=== PATIENT | female | born 1965 | race Caucasian/White ===

== ENCOUNTER → 2017-02-11 | Outpatient (CLI) | payer BC ==
[~2017-02-11] MED LIST: ASPEC325 PO; ATOR80TA PO; BSP5 PO; BUPR150T7 PO; CLC6 PO; CLOP1TAB54 PO; LPR25 PO; LSN25 PO; NITR0.4S UT; PANT40TA PO
--- NOTE | 2017-02-11 14:42 | DIAGNOSTIC IMAGING REPORT ---
LEFT KNEE 4 OR MORE CLINICAL HISTORY: LEFT KNEE PAIN pain COMPARISON: None. DISCUSSION: Moderate degenerative narrowing medial joint compartment. Mild degenerative changes of patellofemoral joint. Superior and inferior osteophytes projecting from the patella. No significant joint effusion. There is no evidence for soft tissue swelling. IMPRESSION: Moderate degenerative change medial joint compartment and patellofemoral joint. No significant joint effusion. Electronically signed by: Yeison Reno M.D. 02/11/2017 2:41 PM Dictated Date/Time: 02/11/2017 2:40 PM
== END | disposition home or self-care (01) ==
LOC: C.RDSM 14:27
PROVIDERS: ATTEND Family Medicine
DX: M25.562 Pain in left knee (principal)

== ENCOUNTER 2024-05-06 17:39 | Inpatient (IN) ==
--- NOTE | 2024-05-06 18:30 | Emergency Department Note ---
ED Provider Note History of Present Illness Chief Complaint: Animal Bite Stated Complaint: CAT BITE RIGHT ARM, IINFLAMED SWOLLEN Time Seen by Provider: 05/06/24 17:58 59-year-old female who presents emergency department with her for evaluation of an infected cat bite to her right wrist. The patient reports that she was bitten early Friday afternoon. With progressively worsening swelling, pain and redness, she was seen in her PCPs office on Friday and started on Augmentin antibiotics. She was instructed to come to the emergency department if the redness worsened beyond the gale on her wrist. The patient reports pain now radiating into her forearm into the elbow region. She denies any tingling or numbness of the right hand or fingers. The patient is right-hand dominant. Tetanus immunization is up-to-date. The patient rates her discomfort a 4 out of 10. The patient reports that the cat's vaccinations are up-to-date. Home Medications Medication Instructions Recorded Confirmed Type cetirizine 10 mg tablet 10 mg PO DAILY PRN allergy symptoms 05/06/19 05/06/24 History citalopram 20 mg tablet 20 mg PO QAM 05/06/19 05/06/24 History multivitamin with minerals 1 tab PO QAM 05/06/19 05/06/24 History (Multiple Vitamin-Minerals tablet) nitroglycerin 0.4 mg sublingual 0.4 mg sublingual Q5M PRN chest 05/06/19 05/06/24 History tablet pain #25 tabs metformin 500 mg tablet,extended 500 mg PO QAM #180 tabs 12/17/21 05/06/24 History release 24 hr rosuvastatin 5 mg tablet 5 mg PO .COMPLEX #45 tabs 08/18/23 05/06/24 Rx amoxicillin 875 mg-potassium 1 tab PO BID 05/06/24 05/06/24 History clavulanate 125 mg tablet aspirin 81 mg tablet,delayed 81 mg PO QAM 05/06/24 05/06/24 History release clopidogrel 75 mg tablet 75 mg PO QAM 05/06/24 05/06/24 History ezetimibe 10 mg tablet 10 mg PO QAM 05/06/24 05/06/24 History hydrochlorothiazide 25 mg tablet 25 mg PO QAM 05/06/24 05/06/24 History losartan 100 mg tablet 100 mg PO QAM 05/06/24 05/06/24 History semaglutide 1 mg/dose (4 mg/3 mL) 1 mg subcut WK 05/06/24 05/06/24 History subcutaneous pen injector (Ozempic) spironolactone 25 mg tablet 25 mg PO QAM 05/06/24 05/06/24 History Allergies Allergy/AdvReac Type Severity Reaction Status Date / Time codeine AdvReac Intermediate NAUSEA AND Unverified 05/06/24 19:00 VOMITING meperidine AdvReac Intermediate NAUSEA AND Unverified 05/06/24 19:00 VOMITING atorvastatin AdvReac Mild makes her Verified 05/06/24 20:15 sick diltiazem AdvReac Mild makes her Verified 05/06/24 20:15 sick hydromorphone [From Dilaudid] AdvReac Mild makes her Verified 05/06/24 20:15 sick lisinopril AdvReac Mild makes her Verified 05/06/24 20:15 sick Past Med/Surg History Problem List (Updated 05/06/24 @ 22:08 by Todd Salinas) Cat bite of right wrist with infection (Acute) Cutaneous abscess of right wrist (Acute) Cellulitis Tenosynovitis of wrist flexor Fatty liver Type 2 diabetes mellitus Hypertension Elevated liver transaminase level Antiplatelet or antithrombotic long-term use Status post insertion of drug-eluting stent into right coronary artery for coronary artery disease 2.25 X 18 mm Xience Viktoriya MCKAYLA Glucose intolerance DANIEL on CPAP Dyslipidemia CAD (coronary artery disease) Medical History Hyperlipidemia Sleep apnea Morbid obesity with BMI of 50.0-59.9, adult Anxiety Former smoker Inferior myocardial infarction Surgical History H/O elbow surgery History of carpal tunnel surgery Hx laparoscopic cholecystectomy Family History Father Myocardial infarction Cardiomyopathy Mother Lupus Social History Smoking Status: Never smoker Hx Alcohol Use: Yes Preferred Language: Macedonian marital status: Current Living Situation: Spouse current occupational status: employed Feels Safe at Home: Yes Physical Exam Vital Signs Vital Signs - 24 hr 05/06/24 17:53 05/06/24 21:00 Temperature 36.8 C Temperature Source Temporal Artery Scan Pulse Rate 94 H Pulse Rate [Right Finger] 74 Respiratory Rate 18 19 Respiratory Effort / Characteristics Non-Labored Respiratory Pattern Regular Blood Pressure 125/66 Blood Pressure [Left Arm] 112/68 Blood Pressure Mean 85 Blood Pressure Mean [Left Arm] 82 Pulse Oximetry 97 98 Oxygen Delivery Method Room Air Room Air Sepsis Recent Fever Within 48 Hours No Sepsis New/Unexplained Change in Mental Status N/A Sepsis Action Taken by Nursing No Action Required CONSTITUTIONAL: Healthy and well nourished. Alert and oriented X 3. Patient does not appear in any acute distress. RESPIRATORY: Clear to auscultation bilaterally with no wheezing, crackles, rhonchi or stridor. CARDIOVASCULAR: Regular rate and rhythm with no murmurs, rubs or gallops. MUSCULOSKELETAL: Examination of the right wrist shows 2 puncture wounds, both dorsal and volar, along with multiple superficial abrasions. The patient has notable edema of the wrist and distal forearm region, with erythema starting to advance onto the distal forearm region. The patient also has pain with passive flexion and extension of the fingers and wrist, radiating into the forearm and elbow region. Cap refill of the fingers is less than 2 seconds. INTEGUMENTARY: No rash or other significant dermatologic conditions noted. HEMATOLOGIC: No ecchymosis or petechiae. PSYCHIATRIC: Positive affect. NEUROLOGIC: Right hand and fingers are sensory intact. Course Course Patient history and physical exam were performed. Nurses notes were reviewed. Vital signs are reviewed. I did express concern for a deep tissue infection, and indicated that she would likely require admission for IV antibiotics, possibly I&D procedure. IV access was established, and labs were ordered and drawn. The patient was administered IV Toradol for pain. I did take photos and send them via secure [place] text to Dr. Melvin, [facility] hand surgeon, who recommended admission and MRI of the wrist, and if needed, he could perform an I&D procedure tomorrow. This was also discussed with the patient, who was in agreement. The patient was ordered Unasyn 3 g IV infusion. Review of labs shows a mildly elevated white count. Patient also has an elevated glucose, with history of diabetes. MRI with and without IV contrast of the wrist does show a small abscess, with mild tenosynovitis of the first and second extensor compartments as read by the radiologist. I did send these MRI results to Dr. Melvin. The patient will remain n.p.o. after midnight for anticipated I&D procedure. Administered Medications Discontinued Medications Gadobutrol (Gadobutrol 65ml Vial) 13 ml IV ONCE ONE Stop: 05/06/24 20:33 Last Admin: 05/06/24 20:32 Dose: 13 ml Documented By: NICOLE Ampicillin Sodium/Sulbactam Sodium (Unasyn) 3,000 mg in 100 mls @ 200 mls/hr IV NOW STA Stop: 05/06/24 18:40 Last Infusion: 05/06/24 19:31 Dose: Infused Documented By: Admin: 05/06/24 18:36 Dose: 200 mls/hr Documented By: YUNIOR Ketorolac Tromethamine (Ketorolac Tromethamine 15 Mg/Ml Vial) 15 mg IV NOW STA Stop: 05/06/24 18:21 Last Admin: 05/06/24 18:36 Dose: 15 mg Documented By: YUNIOR Medical Decision Making Medical Records Attestation: I reviewed the patient's medical records. Home Medications was personally reviewed by me Laboratory Data Attestation: I reviewed the patient's lab results. 05/06/24 18:20 05/06/24 18:20 Lab Results 05/06/24 05/06/24 Range/Units 18:20 21:34 WBC 13.46 H (4.8-10.8) K/ul RBC 4.71 (4.20-5.40) M/uL Hgb 13.6 (12.0-16.0) g/dl Hct 41.5 (37.0-47.0) % MCV 88.1 (80.0-100.0) fL MCH 28.9 (25.0-34.0) pg MCHC 32.8 (32.0-36.0) g/dL RDW Std Deviation 40.9 (36.4-46.3) fL RDW Coeff of Deshaun 12.6 (11.5-14.5) % Plt Count 326 (130-400) K/uL MPV 11.1 (9.4-12.4) fL Immature Gran % (Auto) 0.3 % Neut % (Auto) 73.7 % Lymph % (Auto) 17.2 % [place] % (Auto) 7.2 % Eos % (Auto) 1.0 % Baso % (Auto) 0.6 % Neut # (Auto) 9.92 H (1.40-6.50) K/uL Lymph # (Auto) 2.32 (1.20-3.40) K/uL [place] # (Auto) 0.97 H (0.11-0.59) K/uL Eos # (Auto) 0.13 (0.00-0.50) K/uL Baso # (Auto) 0.08 (0.00-0.20) K/uL Immature Gran # (Auto) 0.04 (0.01-0.20) K/uL Sodium 136 (136-145) mmol/L Potassium 3.5 (3.5-5.1) mmol/L Chloride 97 L (98-107) mmol/L Carbon Dioxide 29 (21-32) mmol/L Anion Gap 10 (3-11) BUN 13 (6-23) mg/dl Creatinine 0.69 (0.6-1.2) mg/dl Est Cr Clr Drug Dosing 121.4 ml/min eGFR 99.29 BUN/Creatinine Ratio 18.8 (10-20) Glucose 253 H (70-99(Fasting)) mg/dl POC Glucose 212 H (70-99) mg/dl Calcium 9.9 (8.6-10.3) mg/dl Total Bilirubin 0.8 (0.2-1.0) mg/dl AST 32 (13-39) U/L ALT 44 (7-52) U/L Alkaline Phosphatase 34 (34-104) U/L Total Protein 7.6 (6.0-8.3) gm/dl Albumin 4.6 (3.4-5.0) gm/dl Globulin 3.0 (2.5-4.0) gm/dl Albumin/Globulin Ratio 1.5 (0.9-2) Imaging Data Attestation: I personally reviewed and interpreted this imaging study as follows: My Impression: My interpretation of an MRI with and without IV contrast of the right wrist does show a volar abscess, with mild tenosynovitis of the first and second extensor compartments as discussed in the following radiologist report, which was also reviewed with concurrence. Radiologist's Impression: Wrist MRI 05/06/24 18:30 Exam(s): MRI RIGHT WRIST W/WO Contrast IV Amt: 13cc gadavist EXAM: MR Right Upper Extremity Without and With Intravenous Contrast, Wrist CLINICAL HISTORY: Reason for exam: Cat bite with infected flexor tenosynovitis. TECHNIQUE: Multiplanar magnetic resonance images of the right wrist without and with intravenous contrast. CONTRAST: Patient received 13cc gadavist of IV contrast COMPARISON: Left hand radiographs 11/25/22 FINDINGS: There is no evidence of acute fracture or dislocation. There is no bone marrow edema. There is no evidence of septic arthritis or osteomyelitis. Nonspecific intraosseous cyst within the proximal scaphoid is most likely on the basis of overlying chondral loss. There is mild osteoarthritis of the triscaphe joint and severe osteoarthritis of the first CMC joint. Carpal alignment is normal. Scapholunate and lunotriquetral ligaments are intact. Angular fibrocartilage complex is intact. Carpal tunnel appears normal. Flexor retinaculum is intact. Median nerve appears normal. Flexor tendons appear normal. There is no palmar bursitis. Ulnar nerve appears unremarkable. Extensor tendons appear intact. There is mild tenosynovitis of the first and second extensor compartments of the wrist. There is a 1.6 x 1.6 x 0.7 cm peripherally enhancing fluid collection within the subcutaneous tissues lateral to the abductor pollicis longus tendon at the level of the distal radius (series 4, image 13). There is diffuse subcutaneous edema and soft tissue swelling along the dorsal and radial aspect of the wrist. IMPRESSION: 1. Dorsal and radial cellulitis of the wrist. 2. Rim-enhancing fluid collection lateral to the abductor pollicis longus tendon at the level of the distal radius (series 4, image 13). This measures 1.6 x 1.6 x 0.7 cm and could represent a soft tissue abscess. 3. Mild tenosynovitis of the first and second extensor compartments of the wrist. Electronically signed by: Geena Baltazra M.D. 05/06/24 21:16 PM MDM Narrative See ED Course section for further details of today's visit. The patient presents with complaint of progressively worsening infection of the right wrist after being bitten by her cat approximately 15 hours ago. The patient reports that she does have 4 doses of Augmentin on board without any improvement. Examination is concerning for an infected flexor tenosynovitis, having notable pain with any attempted passive flexion of the wrist and fingers. Laboratory studies shows a mildly elevated white count. MRI of the wrist does show a small volar abscess, as well as mild tenosynovitis within the first and second extensor compartments. The case was discussed with Dr. Melvin, [facility] hand surgeon, who will be consulted for possible I&D procedure tomorrow morning. Impression Cutaneous abscess of right wrist, Cat bite of right wrist with infection Discharge Plan Visit Data Chief Complaint: Animal Bite Stated Complaint: CAT BITE RIGHT ARM, IINFLAMED SWOLLEN ED Provider: Huey Salazar ED Midlevel Provider: Todd Salinas Discharge Problem: Cutaneous abscess of right wrist, Cat bite of right wrist with infection Forms Stand Alone Forms: [email or web address] Prescriptions Prescriptions: No Action rosuvastatin 5 mg tablet 5 mg PO .COMPLEX Qty: 45 3RF Hold Instructions: Leg pain Rx Instructions: 5 mg PO every other day; MON/WED/FRI nitroglycerin 0.4 mg tablet, sublingual 0.4 mg SL Q5M PRN (Reason: chest pain) Qty: 25 citalopram 20 mg tablet 20 mg PO QAM multivitamin with minerals [Multiple Vitamin-Minerals] tablet 1 tab PO QAM cetirizine 10 mg tablet 10 mg PO DAILY PRN (Reason: allergy symptoms) metformin 500 mg tablet extended release 24 hr 500 mg PO QAM Qty: 180 amoxicillin-pot clavulanate 875-125 mg tablet 1 tab PO BID Ozempic 1 mg/dose (4 mg/3 mL) pen injector 1 mg SUBCUT WK Rx Instructions: TUESDAYS aspirin [Aspirin Low-Strength] 81 mg Tablet,Delayed Release (Dr/Ec) 81 mg PO QAM hydrochlorothiazide 25 mg tablet 25 mg PO QAM losartan 100 mg tablet 100 mg PO QAM clopidogrel 75 mg tablet 75 mg PO QAM ezetimibe 10 mg tablet 10 mg PO QAM spironolactone 25 mg tablet 25 mg PO QAM Referrals Referrals: Ambar Mendez [Primary Care Provider] - Discharge Problem: Cat bite of right wrist with infection Qualifiers: Encounter type: initial encounter Qualified Code(s): S61.551A - Open bite of right wrist, initial encounter
[2024-05-06] MEDS: AMPICILLIN/SULBACTAM SOD 3,000 MG/100 ML BAG IV STA (18:36)
[2024-05-06] MEDS: KETOROLAC TROMETHAMINE 15 MG/ML VIAL IV STA (18:36)
[2024-05-06 18:38] LABS: Basophils # (auto) 0.08 K/uL (0.00-0.20); Basophils % (auto) 0.6 %; Eosinophils # (auto) 0.13 K/uL (0.00-0.50); Hematocrit (blood only) 41.5 % (37.0-47.0); Hemoglobin 13.6 g/dl (12.0-16.0); Immature Granulocytes # (auto) 0.04 K/uL (0.01-0.20); Immature Granulocytes % (auto) 0.3 %; Lymphocytes # (auto) 2.32 K/uL (1.20-3.40); Lymphocytes % (auto) 17.2 %; Mean Corpuscular Hemoglobin 28.9 pg (25.0-34.0); Mean Corpuscular Hgb Conc 32.8 g/dL (32.0-36.0); Mean Corpuscular Volume 88.1 fL (80.0-100.0); Mean Platelet Volume 11.1 fL (9.4-12.4); Monocytes # (auto) 0.97 K/uL (0.11-0.59); Monocytes % (auto) 7.2 %; Neutrophils # (auto) 9.92 K/uL (1.40-6.50); Neutrophils % (auto) 73.7 %; Platelet Count 326 K/uL (130-400); RDW Coefficient of Variation 12.6 % (11.5-14.5); RDW Standard Deviation 40.9 fL (36.4-46.3); Red Blood Count 4.71 M/uL (4.20-5.40); White Blood Count 13.46 K/ul (4.8-10.8)
[2024-05-06 19:08] LABS: Albumin Globulin Ratio 1.5 (0.9-2); Albumin Level 4.6 gm/dl (3.4-5.0); BUN Creatinine Ratio 18.8 (10-20); Bilirubin,Total 0.8 mg/dl (0.2-1.0); Calcium 9.9 mg/dl (8.6-10.3); Creatinine Clr Calc Pharmacy 121.4 ml/min; Potassium 3.5 mmol/L (3.5-5.1); Total Protein 7.6 gm/dl (6.0-8.3)
--- NOTE | 2024-05-06 19:57 | History & Physical Report ---
Date of Service May 06, 2024 Assessment & Plan (1) Tenosynovitis of wrist flexor: Plan: Clinically concerning for this with painful and limited flexion of her fingers MRI wrist w/wo IV contrast Pre-op CXR and EKG IV Unasyn, MRSA nasal swab ordered but no history of this and injury from cat bite Elevate RUE as much as possible to reduce swelling Hold anti-hypertensives pre-operatively Prior history fo acute inferior KS in 2020 with MCKAYLA to total distal RCA occlusion however very stable since then Revised cardiac risk index 2, 10.1% 30-day risk of , KS or cardiac arrest. Medical clearance pending chest x-ray and EKG. Consult orthopedics, NPO at midnight + IV fluids incase she requires I&D tomorrow (2) Type 2 diabetes mellitus: Plan: HbA1C 9.7 in 2020, repeat with AM labs Hold Ozempic and metformin Novolog: --Goal BSG Range: Low 110 mg/dL, High 140 mg/dL --Correction Factor: 45 mg/dL/unit --Carbohydrate ratio = 15 g/unit --BSGs ACHS if eating, q6h if npo Add Lantus if serial glucose levels elevated and requiring frequent Novolog (3) Cellulitis: (4) Hypertension: Plan: Holding anti-hypertensives pre-surgery Plan Anxiety - continue citalopram Coronary artery disease - s/p KS 2011, continue aspirin, holding clopidogrel pending possible surgical intervention, not on beta-leonor, continue losartan postop, continue rosuvastatin VTE prophylaxis - low risk, encourage ambulation Diet - T2DM, NPO @ midnight Disposition - observation to med/surg Admission and Anticipated Discharge Date Admission Date: May 06, 2024 History of Present Illness Chief Complaint: Cellulitis Primary Care Provider: Ambar Mendez Ling Buenrostro is a 59 year old female who presents to the ER following a cat bite. Initial by on Friday afternoon. Progressively worsening pain, swelling and erythema. She was seen by her PCP on Friday and started on Augmentin however the redness is continued to progress and she is less able to flex her fingers therefore decided to come to the ER. Current pain severity 2 out of 10. No prior history of MRSA. No fever or chills. Allergies Allergy/AdvReac Type Severity Reaction Status Date / Time codeine AdvReac Intermediate NAUSEA AND Unverified 05/06/24 19:00 VOMITING meperidine AdvReac Intermediate NAUSEA AND Unverified 05/06/24 19:00 VOMITING atorvastatin AdvReac Mild makes her Verified 05/06/24 20:15 sick diltiazem AdvReac Mild makes her Verified 05/06/24 20:15 sick hydromorphone [From Dilaudid] AdvReac Mild makes her Verified 05/06/24 20:15 sick lisinopril AdvReac Mild makes her Verified 05/06/24 20:15 sick Home Medications Medication Instructions Recorded Confirmed Type cetirizine 10 mg tablet 10 mg PO DAILY PRN allergy symptoms 05/06/19 05/06/24 History citalopram 20 mg tablet 20 mg PO QAM 05/06/19 05/06/24 History multivitamin with minerals 1 tab PO QAM 05/06/19 05/06/24 History (Multiple Vitamin-Minerals tablet) nitroglycerin 0.4 mg sublingual 0.4 mg sublingual Q5M PRN chest 05/06/19 05/06/24 History tablet pain #25 tabs metformin 500 mg tablet,extended 500 mg PO QAM #180 tabs 12/17/21 05/06/24 History release 24 hr rosuvastatin 5 mg tablet 5 mg PO .COMPLEX #45 tabs 08/18/23 05/06/24 Rx amoxicillin 875 mg-potassium 1 tab PO BID 05/06/24 05/06/24 History clavulanate 125 mg tablet aspirin 81 mg tablet,delayed 81 mg PO QAM 05/06/24 05/06/24 History release clopidogrel 75 mg tablet 75 mg PO QAM 05/06/24 05/06/24 History ezetimibe 10 mg tablet 10 mg PO QAM 05/06/24 05/06/24 History hydrochlorothiazide 25 mg tablet 25 mg PO QAM 05/06/24 05/06/24 History losartan 100 mg tablet 100 mg PO QAM 05/06/24 05/06/24 History semaglutide 1 mg/dose (4 mg/3 mL) 1 mg subcut WK 05/06/24 05/06/24 History subcutaneous pen injector (Ozempic) spironolactone 25 mg tablet 25 mg PO QAM 05/06/24 05/06/24 History Past Med/Surg History Problem List (Updated 05/06/24 @ 22:08 by Todd Salinas) Cat bite of right wrist with infection (Acute) Cutaneous abscess of right wrist (Acute) Cellulitis Tenosynovitis of wrist flexor Fatty liver Type 2 diabetes mellitus Hypertension Elevated liver transaminase level Antiplatelet or antithrombotic long-term use Status post insertion of drug-eluting stent into right coronary artery for coronary artery disease 2.25 X 18 mm Xience Viktoriya MCKAYLA Glucose intolerance DANIEL on CPAP Dyslipidemia CAD (coronary artery disease) Medical History Hyperlipidemia Sleep apnea Morbid obesity with BMI of 50.0-59.9, adult Anxiety Former smoker Inferior myocardial infarction Surgical History H/O elbow surgery History of carpal tunnel surgery Hx laparoscopic cholecystectomy Family History Father Myocardial infarction Cardiomyopathy Mother Lupus Social History Smoking Status: Former smoker Hx Alcohol Use: No Hx Substance Use: No Preferred Language: Greek 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 Beliefs That Will Affect Care: None marital status: Current Living Situation: Spouse current occupational status: employed Feels Safe at Home: Yes Safety Concerns: Feels Safe At This Time Review of Systems 2 Review of Systems: All systems reviewed & are unremarkable except as noted in HPI & below Physical Exam 2 Constitutional: well developed and + morbidly obese; + not well nourished and no acute distress Eyes: + anicteric sclerae; normal pupil size Respiratory: normal respiratory effort, lungs clear to auscultation Cardiovascular: RRR, no murmur, no edema Gastrointestinal (Abdomen): normal bowel sounds, soft, nontender, no hepatosplenomegaly Skin: Erythema and swelling over the lateral aspects of right hand from thumb to mid forearm spreading beyond marked area (reportedly from yesterday), unable to fully flex fingers, normal capillary refill Neurologic: moves all extremities and awake; not confused Psychiatric: A+Ox3, euthymic affect Results & Data Results & Data Vital Signs (Past 12 Hours) Vital Signs Temp Pulse Resp BP Pulse Ox O2 Del Method 05/06/24 17:53 36.8 C 94 H 18 125/66 97 Room Air Laboratory Results Abnormal lab results 05/06/24 Range/Units 18:20 WBC 13.46 H (4.8-10.8) K/ul Neut # (Auto) 9.92 H (1.40-6.50) K/uL [place] # (Auto) 0.97 H (0.11-0.59) K/uL Chloride 97 L (98-107) mmol/L Glucose 253 H (70-99(Fasting)) mg/dl Diagnostic Findings None Medications Administered ER medications given: Unasyn 3000 mg IV Toradol 15 mg IV Code Status & VTE Plan Code Status Full PG Care Time/CCT Total # of Minutes Spent Total Time Spent with Patient: Total time spent is greater than 50% in coordination of care (as documented) at patient's floor/unit and/or counseling patient: Coding Level of Care Code 17166 INT INP/OBS CARE MIN Diagnoses Tenosynovitis of wrist flexor M65.939 Type 2 diabetes mellitus E11.9 Cellulitis L03.90 Hypertension I10
[2024-05-06] MEDS ORDERED: DEXTROSE 50% 50 ML SYRINGE IV PRN (20:08)
[2024-05-06] MEDS ORDERED: CARBOHYDRATES FOR HYPOGLYCEMIA PO PRN (20:08)
[2024-05-06] MEDS ORDERED: GLUCOSE 40% GEL 15 GM TUBE PO PRN (20:08)
[2024-05-06] MEDS ORDERED: GLUCOSE 10 TAB/TUBE PO PRN (20:08)
[2024-05-06] MEDS ORDERED: GLUCAGON FOR INJ 1 MG VIAL SQ PRN (20:08)
[2024-05-06] MEDS: GADOBUTROL 65ML VIAL IV ONE (20:32)
--- NOTE | 2024-05-06 21:17 | Magnetic Resonance Report ---
Exam(s): MRI RIGHT WRIST W/WO Contrast IV Amt: 13cc gadavist EXAM: MR Right Upper Extremity Without and With Intravenous Contrast, Wrist CLINICAL HISTORY: Reason for exam: Cat bite with infected flexor tenosynovitis. TECHNIQUE: Multiplanar magnetic resonance images of the right wrist without and with intravenous contrast. CONTRAST: Patient received 13cc gadavist of IV contrast COMPARISON: Left hand radiographs 11/25/22 FINDINGS: There is no evidence of acute fracture or dislocation. There is no bone marrow edema. There is no evidence of septic arthritis or osteomyelitis. Nonspecific intraosseous cyst within the proximal scaphoid is most likely on the basis of overlying chondral loss. There is mild osteoarthritis of the triscaphe joint and severe osteoarthritis of the first CMC joint. Carpal alignment is normal. Scapholunate and lunotriquetral ligaments are intact. Angular fibrocartilage complex is intact. Carpal tunnel appears normal. Flexor retinaculum is intact. Median nerve appears normal. Flexor tendons appear normal. There is no palmar bursitis. Ulnar nerve appears unremarkable. Extensor tendons appear intact. There is mild tenosynovitis of the first and second extensor compartments of the wrist. There is a 1.6 x 1.6 x 0.7 cm peripherally enhancing fluid collection within the subcutaneous tissues lateral to the abductor pollicis longus tendon at the level of the distal radius (series 4, image 13). There is diffuse subcutaneous edema and soft tissue swelling along the dorsal and radial aspect of the wrist. IMPRESSION: 1. Dorsal and radial cellulitis of the wrist. 2. Rim-enhancing fluid collection lateral to the abductor pollicis longus tendon at the level of the distal radius (series 4, image 13). This measures 1.6 x 1.6 x 0.7 cm and could represent a soft tissue abscess. 3. Mild tenosynovitis of the first and second extensor compartments of the wrist. Electronically signed by: Geena Baltazar M.D. 05/06/24 21:16 PM
[2024-05-06] MEDS: INSULIN ASPART PER UNIT CHARGE SC STA (23:10)
[2024-05-06] MEDS: LACTATED RINGER'S 1,000 ML IV SCH (23:55)
[2024-05-06] MEDS: AMPICILLIN/SULBACTAM SOD 3,000 MG/100 ML BAG IV SCH (23:56)
[2024-05-06] MEDS: ACETAMINOPHEN 325 MG TAB PO PRN (23:56)
[2024-05-07] MEDS ORDERED: PHARMACY GLYCEMIC MGMT CONSULT PRN ×2 (02:13→08:15)
[2024-05-07] MEDS: KETOROLAC TROMETHAMINE 15 MG/ML VIAL IV PRN (05:31)
[2024-05-07 07:50] LABS: Basophils # (auto) 0.05 K/uL (0.00-0.20); Basophils % (auto) 0.5 %; Eosinophils # (auto) 0.14 K/uL (0.00-0.50); Eosinophils % (auto) 1.3 %; Hematocrit (blood only) 37.3 % (37.0-47.0); Hemoglobin 12.3 g/dl (12.0-16.0); Immature Granulocytes # (auto) 0.03 K/uL (0.01-0.20); Immature Granulocytes % (auto) 0.3 %; Lymphocytes # (auto) 2.33 K/uL (1.20-3.40); Lymphocytes % (auto) 21.7 %; Mean Corpuscular Hemoglobin 29.2 pg (25.0-34.0); Mean Corpuscular Volume 88.6 fL (80.0-100.0); Mean Platelet Volume 10.9 fL (9.4-12.4); Monocytes # (auto) 0.92 K/uL (0.11-0.59); Monocytes % (auto) 8.6 %; Neutrophils # (auto) 7.29 K/uL (1.40-6.50); Neutrophils % (auto) 67.6 %; Platelet Count 240 K/uL (130-400); RDW Coefficient of Variation 12.8 % (11.5-14.5); RDW Standard Deviation 41.1 fL (36.4-46.3); Red Blood Count 4.21 M/uL (4.20-5.40); White Blood Count 10.76 K/ul (4.8-10.8)
[2024-05-07 08:05] LABS: BUN Creatinine Ratio 24.2 (10-20); Calcium 9.2 mg/dl (8.6-10.3); Creatinine Clr Calc Pharmacy 135.1 ml/min; Potassium 3.7 mmol/L (3.5-5.1)
--- NOTE | 2024-05-07 08:20 | XRay Report ---
XR chest 1V portable CLINICAL HISTORY: Preoperative evaluation. COMPARISON STUDY: Chest radiograph May 06, 2023. FINDINGS: Moderate cardiomegaly is noted. There is no evidence for pulmonary edema. No pneumothorax o r pleural effusion is present. There is no consolidation. Elevation/eventration of the right hemidiap hragm is again noted. IMPRESSION: No acute cardiopulmonary findings. Cardiomegaly. ACT 112: Negative or not required by law. Electronically signed by: Jose Miguel Connors M.D. 05/07/2024 8:19 AM
[2024-05-07 08:23] LABS: Estimated Average Glucose 203 mg/dl; Hemoglobin A1C 8.7 % (4.5-5.6)
[2024-05-07] MEDS: INSULIN ASPART PER UNIT CHARGE SC SCH (08:36)
[2024-05-07] MEDS: CITALOPRAM 20 MG TAB PO SCH (08:38)
[2024-05-07] MEDS: ASPIRIN 81 MG ECTAB PO SCH (08:38)
[2024-05-07] MEDS: EZETIMIBE 10 MG TAB PO SCH (08:38)
[2024-05-07] MEDS: ROSUVASTATIN CALCIUM 5 MG TAB PO SCH (08:38)
--- OUTSIDE RECORDS SUMMARY | 2024-05-07 08:44 | External Medical Summary ---
Author Name Unknown Address Unknown Organization : Laboratory Report Ordering Provider Test Date Status Vanessa Villalta 04/28/2024 11:34:00 Final Observation Date Value Abnormality Reference (Units ) Status eAG (mg/dL) 04/29/2024 07:04:00 212 (mg/dL) Final
Specimen Received d/t: 04/28/2024 23:49:00

Lab test performed by:
[email or web address]
[address]
[place] [address]
Doug Pearce MD eAG (mmol/L) 04/29/2024 07:04:00 11.7 (mmol/L ) Final
This test was performed on the Deng miller c503 platform.
Effective 07/21/23, a change in test platforms from the
[employer] to the Deng miller c503 may have shifted
HbA1c results compared to historical results.
Based on laboratory validation testing conducted at
[facility], the Deng platform relative to the Wiseman
platform had an average increase in HbA1c value of
< or = 0.3%. This difference is within accepted
variability established by the National Glycohemoglobin
Standardization Program. Note that not all individuals
will have had a shift in their results and direct
comparisons between historical and current results for
testing conducted on different platforms is not
recommended.

Specimen Received d/t: 04/28/2024 23:49:00

Lab test performed by:
[facility]
[address]
[place] [address]
Doug Pearce MD Hemoglobin A1c/Hemoglobin.total in Blood 04/29/2024 07:04:00 9.0 Above high normal <5.7 (% of total Hgb) Final For someone without known di abetes, a hemoglobin A1c
value of 6.5% or greater indicates that they may have
diabetes and this should be confirmed with a follow-up
test.

For someone with known diabetes, a value <7% indicates
that their diabetes is well controlled and a value
greater than or equal to 7% indicates suboptimal
control. A1c targets should be individualized based on
duration of diabetes, age, comorbid conditions, and
other considerations.

Currently, no consensus exists regarding use of
hemoglobin A1c for diagnosis of diabetes for children.

Specimen Received d/t: 04/28/2024 23:49:00

Lab test performed by:
[email or web address]
[address]
[place] [address]
Doug Pearce MD Performing Location
--- OUTSIDE RECORDS SUMMARY | 2024-05-07 08:44 | External Medical Summary ---
Author Name Unknown Address Unknown Organization : Laboratory Report Ordering Provider Test Date Status Vanessa Villalta 04/28/2024 11:34:00 Final Observation Date Value Abnormality Reference (Units ) Status Cholesterol.total/Cholest lashell in HDL [Mass Ratio] in Serum or Plasma 04/29/2024 07:04:00 2.9 <5.0 ((calc)) Final
Specimen Received d/t: 04/28/2024 23:49:00

Lab test performed by:
[facility]
[address]
[place] [address]
Doug Pearce MD Cholesterol in HDL [Mass/vol ume] in Serum or Plasma 04/29/2024 07:04:00 67 > OR = 50 (mg/dL) Final
Specimen Received d/t: 04/28/2024 23:49:00

Lab test performed by:
[facility]
[address]
[place] [address]
Doug Pearce MD Non HDL Chol 04/29/2024 07:04:00 125 <130 (m g/dL (calc)) Final For patients with diabetes p sunny 1 major ASCVD risk
factor, treating to a non-HDL-C goal of <100 mg/dL
(LDL-C of <70 mg/dL) is considered a therapeutic
option.

Specimen Received d/t: 04/28/2024 23:49:00

Lab test performed by:
[facility]
[address]
[place] [address]
Doug Pearce MD LDL Chol 04/29/2024 07:04:00 100 Above high normal (m g/dL (calc)) Final Reference range: <100
<b r/>Desirable range <100 mg/dL for primary prevention;
<70 mg/dL for patients with CHD or diabetic patients
with > or = 2 CHD risk factors.

LDL-C is now calculated using the Andre- Martin
calculation, which is a validated novel method providing
better accuracy than the Friedewald equation in the
estimation of LDL-C.
Andre BRANTLEY et al. TOREY. 2013;310(19): 2061- 2068
(http://education.[employer]/faq/PIE294)

Specimen Received d/t: 04/28/2024 23:49:00

Lab test performed by:
[facility], [facility]
[address]
[place] [address]
Doug Pearce MD Cholesterol [Mass/volume] in Serum or Plasma 04/29/2024 07:04:00 192 <200 (mg/dL) Final
Specimen Received d/t: 04/28/2024 23:49:00

Lab test performed by:
[facility], [facility]
[address]
[place] [address]
Doug Pearce MD Triglyceride [Mass/volume] in Serum or Plasma 04/29/2024 07:04:00 150 Above high normal <150 (mg/dL) Fin al
Specimen Received d/t: 04/28/2024 23:49:00

Lab test performed by:
[facility], [facility]
[address]
[place] [address]
Doug Pearce MD Performing Location
--- OUTSIDE RECORDS SUMMARY | 2024-05-07 08:44 | External Medical Summary ---
Author Name Unknown Address Unknown Organization : Laboratory Report Ordering Provider Test Date Status Vanessa Villalta 04/28/2024 11:34:00 Final Observation Date Value Abnormality Reference (Units ) Status eGFR 04/29/2024 07:04:00 100 > OR = 60 (mL/min/1.73m2) Final
Specimen Received d/t: 04/28/2024 23:49:00

Lab test performed by:
[facility], [facility]
[address]
[place] [address]
Doug Pearce MD Carbon dioxide, total [Moles /volume] in Serum or Plasma 04/29/2024 07:04:00 31 20-32 (mmol/L) Fin al
Specimen Received d/t: 04/28/2024 23:49:00

Lab test performed by:
[facility], [facility]
[address]
[place] [address]
Doug Pearce MD Albumin/Globulin [Mass Ratio ] in Serum or Plasma 04/29/2024 07:04:00 1.7 1.0-2.5 ((calc)) F inal
Specimen Received d/t: 04/28/2024 23:49:00

Lab test performed by:
[facility], [facility]
[address]
[place] [address]
Doug Pearce MD Glucose [Mass/volume] in Serum or Plasma 04/29/2024 07:04:00 195 Above high normal 65-99 (mg/dL) Final
Fasting reference inte rval

For someone without known diabetes, a glucose
value >125 mg/dL indicates that they may have
diabetes and this should be confirmed with a
follow-up test.

Specimen Received d/t: 04/28/2024 23:49:00

Lab test performed by:
[facility], [facility]
[address]
[place] [address]
Doug Pearce MD Sodium [Moles/volume] in Ser um or Plasma 04/29/2024 07:04:00 138 135-146 (mmol/L) Jennifer l
Specimen Received d/t: 04/28/2024 23:49:00

Lab test performed by:
[facility], [facility]
[address]
[place] [address]
Doug Pearce MD Protein [Mass/volume] in Ser um or Plasma 04/29/2024 07:04:00 6.8 6.1-8.1 (g/dL) Final
Specimen Received d/t: 04/28/2024 23:49:00

Lab test performed by:
[facility], [facility]
[address]
[place] [address]
Doug Pearce MD Alkaline phosphatase [Enzyma tic activity/volume] in Serum or Plasma 04/29/2024 07:04:00 40 37-153 (U/L) Final
Specimen Received d/t: 04/28/2024 23:49:00

Lab test performed by:
[facility], [facility]
[address]
[place] [address]
Doug Pearce MD Creatinine [Mass/volume] in Serum or Plasma 04/29/2024 07:04:00 0.68 0.50-1.05 (mg/dL) Fin al
Specimen Received d/t: 04/28/2024 23:49:00

Lab test performed by:
[facility], [facility]
[address]
[place] [address]
Doug Pearce MD Chloride [Moles/volume] in S nupur or Plasma 04/29/2024 07:04:00 98 98-110 (mmol/L) Final
Specimen Received d/t: 04/28/2024 23:49:00

Lab test performed by:
[facility], [facility]
[address]
[place] [address]
Doug Pearce MD Gl[facility] 04/29/2024 07:04:00 2.5 1.9-3 .7 (g/dL (calc)) Final
Specimen Received d/t: 04/28/2024 23:49:00

Lab test performed by:
[facility], [facility]
[address]
[place] [address]
Doug Pearce MD Alanine aminotransferase [Enzymatic activity/volume] in Serum or Plasma 04/29/2024 07:04:00 50 Above high normal 6-29 (U/L) Final
Specimen Received d/t: 04/28/2024 23:49:00

Lab test performed by:
[facility], [facility]
[address]
[place] [address]
Doug Pearce MD Urea nitrogen/Creatinine [Ma ss Ratio] in Serum or Plasma 04/29/2024 07:04:00 SEE NOTE: 6-22 ((c alc)) Final Not Reported: BUN and Creati nine are within
reference range.

Specimen Received d/t: 04/28/2024 23:49:00

Lab test performed by:
[facility], [facility]
[address]
[place] [address]
Doug Pearce MD Ca-[facility] 04/29/2024 07:04:00 9.9 8.6-10.4 ( mg/dL) Final
Specimen Received d/t: 04/28/2024 23:49:00

Lab test performed by:
[facility], [facility]
[address]
[place] [address]
Doug Pearce MD Bilirubin.total [Mass/volume ] in Serum or Plasma 04/29/2024 07:04:00 0.6 0.2-1.2 (mg/dL) Fi nal
Specimen Received d/t: 04/28/2024 23:49:00

Lab test performed by:
[facility], [facility]
[address]
[place] [address]
Doug Pearce MD Urea nitrogen [Mass/volume] in Serum or Plasma 04/29/2024 07:04:00 12 7-25 (mg/dL) Final
Specimen Received d/t: 04/28/2024 23:49:00

Lab test performed by:
[facility], [facility]
[address]
[place] [address]
Doug Pearce MD Potassium [Moles/volume] in Serum or Plasma 04/29/2024 07:04:00 4.0 3.5-5.3 (mmol/L) Jennifer l
Specimen Received d/t: 04/28/2024 23:49:00

Lab test performed by:
[facility], [facility]
[address]
[place] [address]
Doug Pearce MD Albumin [Mass/volume] in Ser um or Plasma 04/29/2024 07:04:00 4.3 3.6-5.1 (g/dL) Final
Specimen Received d/t: 04/28/2024 23:49:00

Lab test performed by:
[facility], [facility]
[address]
[place] [address]
Doug Pearce MD Aspartate aminotransferase [Enzymatic activity/volume] in Serum or Plasma 04/29/2024 07:04:00 46 Above high normal 10-35 (U/L ) Final
Specimen Received d/t: 04/28/2024 23:49:00

Lab test performed by:
[facility], [facility]
[address]
[place] [address]
Doug Pearce MD Performing Location
--- NOTE | 2024-05-07 09:38 | Orthopedic Consultation ---
Date of Consultation May 07, 2024 Assessment & Plan (1) Cat bite of right wrist with infection: (2) Cellulitis: (3) Cutaneous abscess of right wrist: (4) Type 2 diabetes mellitus: (5) DANIEL on CPAP: (6) Dyslipidemia: (7) CAD (coronary artery disease): Plan This is a pleasant 59-year-old female who presents to [facility] [address] for evaluation of a cat bite to her right wrist. She has failed oral antibiotics and has been started on IV antibiotics. I had a long discussion with the patient regarding this injury. We discussed in great detail the pathoanatomy, pathophysiology, and treatment options. I discussed with her that in general cat bites are more concerning than other animal bites due to the piercing nature of the cat's teeth. I explained that it is not uncommon for cat bites to fail oral antibiotics and require IV antibiotics. I did examine the patient's wrist as well as her MRI. On physical exam it is difficult to feel the small fluid collection that is appreciated on MRI, and nothing was able to be expressed. The patient demonstrated some discomfort at this area, but certainly was not severe. she has no concerning findings for flexor tenosynovitis. She notes that she has already started to get exceedingly better on the antibiotic treatment that she is currently receiving. I spoke to the patient with regards to our treatment options #1 being continued cautious observation with a low threshold to proceed to the operating room for irrigation and debridement or, #2 being to proceed with irrigation debridement today. Both options are not without risk. There is certainly a risk of requiring multiple debridements if we proceed to the OR, additionally, due to her cardiac history, there are anesthesia risk with proceeding to the OR. Should we continue to cautiously observe, there is a risk of the infection worsening. After understanding the risks associated with both treatment options, the patient has elected to continue with cautious observation. We will allow her to eat today and make her n.p.o. at midnight tonight in case she does need to proceed to the OR tomorrow. I have ordered an ESR/CRP to be drawn today and we will repeat these labs tomorrow morning. I have also ordered an x-ray of the right wrist to determine if there is a radiopaque foreign body. Medical management per primary team Thank you for allowing me to participate in the care of this patient. I will continue to follow along History of Present Illness Reason for Consultation: Right hand cat bite Attending Physician: Ilir Cohen MD History of Present Illness This is a 59-year-old female who notes that last week she was trying to break up a fight between 2 cats when she sustained a bite to her right hand and wrist. She notes that she washed the area at first, however when it did not improve over the next 2 days emergency department care provider who prescribed her Augmentin. She notes worsening of the pain, redness and she began feeling febrile so she finds the Emergency Department for evaluation. In the Emergency Department, she was switched to IV antibiotics (Unasyn). She notes atraumatic improvement from yesterday after only having IV antibiotics overnight. She denies any fevers at current. She denies any meds with her chills. She denies any additional concerning areas. Allergies Allergy/AdvReac Type Severity Reaction Status Date / Time codeine AdvReac Intermediate NAUSEA AND Unverified 05/06/24 19:00 VOMITING meperidine AdvReac Intermediate NAUSEA AND Unverified 05/06/24 19:00 VOMITING atorvastatin AdvReac Mild makes her Verified 05/06/24 20:15 sick diltiazem AdvReac Mild makes her Verified 05/06/24 20:15 sick hydromorphone [From Dilaudid] AdvReac Mild makes her Verified 05/06/24 20:15 sick lisinopril AdvReac Mild makes her Verified 05/06/24 20:15 sick Home Medications Medication Instructions Recorded Confirmed Type cetirizine 10 mg tablet 10 mg PO DAILY PRN allergy symptoms 05/06/19 05/06/24 History citalopram 20 mg tablet 20 mg PO QAM 05/06/19 05/06/24 History multivitamin with minerals 1 tab PO QAM 05/06/19 05/06/24 History (Multiple Vitamin-Minerals tablet) nitroglycerin 0.4 mg sublingual 0.4 mg sublingual Q5M PRN chest 05/06/19 05/06/24 History tablet pain #25 tabs metformin 500 mg tablet,extended 500 mg PO QAM #180 tabs 12/17/21 05/06/24 History release 24 hr rosuvastatin 5 mg tablet 5 mg PO .COMPLEX #45 tabs 08/18/23 05/06/24 Rx amoxicillin 875 mg-potassium 1 tab PO BID 05/06/24 05/06/24 History clavulanate 125 mg tablet aspirin 81 mg tablet,delayed 81 mg PO QAM 05/06/24 05/06/24 History release clopidogrel 75 mg tablet 75 mg PO QAM 05/06/24 05/06/24 History ezetimibe 10 mg tablet 10 mg PO QAM 05/06/24 05/06/24 History hydrochlorothiazide 25 mg tablet 25 mg PO QAM 05/06/24 05/06/24 History losartan 100 mg tablet 100 mg PO QAM 05/06/24 05/06/24 History semaglutide 1 mg/dose (4 mg/3 mL) 1 mg subcut WK 05/06/24 05/06/24 History subcutaneous pen injector (Ozempic) spironolactone 25 mg tablet 25 mg PO QAM 05/06/24 05/06/24 History Patient History Medical History Hyperlipidemia Sleep apnea Morbid obesity with BMI of 50.0-59.9, adult Anxiety Former smoker Inferior myocardial infarction Surgical History H/O elbow surgery History of carpal tunnel surgery Hx laparoscopic cholecystectomy Family History Father Myocardial infarction Cardiomyopathy Mother Lupus Social History Smoking Status: Former smoker Hx Alcohol Use: No Hx Substance Use: No Preferred Language: Portuguese Financial Aid Coordinator Required: No Beliefs That Will Affect Care: None marital status: Current Living Situation: Spouse current occupational status: employed Feels Safe at Home: Yes Safety Concerns: Feels Safe At This Time Review of Systems Review of Systems: Negative as otherwise noted in HPI Physical Exam Physical Exam: Constitutionally, the patient appears well. She is resting comfortably in bed and very polite and friendly. On physical exam of the patient's right upper extremity, she has a series of punctate scabs representing the sites of cat bite. Most concerning on exam are two bites:#1 at the level of the radial styloid on the radial aspect of the forearm, and #2 on the dorsal and at the level of the carpus. No palpable fluid collection appreciated at this time, however mild pain when palpating over these bites. The there is more pain over the site at the radial styloid than on the dorsum. The patient demonstrates active flexion and extension of all digits without significant pain. She has nontender to palpation over the flexor tendons. She does not demonstrate fusiform swelling of her digits. There is no pain with passive extension of her digits. Results & Data Vital Signs (Past 12 Hours) Vital Signs Temp Pulse Resp BP Pulse Ox O2 Del Method 05/07/24 07:58 36.4 C L 73 20 172/70 H 97 Room Air 05/06/24 23:16 36.6 C 78 16 164/78 H 99 Room Air Laboratory Results WBC on presentation: 13.46 WBC this mornin.76 No values for ESR/CRP Diagnostic Findings MRI of the right wrist was personally interpreted and reviewed. This demonstrates diffuse cellulitis through the subcutaneous tissues of the right wrist with small fluid collection just superficial to the EPL tendon at the level of the radial styloid. (1) Cat bite of right wrist with infection Encounter type: initial encounter Qualified Code(s): S61.551A - Open bite of right wrist, initial encounter; L08.9 - Local infection of the skin and subcutaneous tissue, unspecified; W55.01XA - Bitten by cat, initial encounter
[2024-05-07 10:23] LABS: C Reactive Protein 1.84 mg/dl (0-0.5)
--- NOTE | 2024-05-07 10:39 | Electrocardiogram Report ---
Test Reason : Blood Pressure : */* mmHG Vent. Rate : 75 BPM Atrial Rate : 75 BPM P-R Int : 212 ms QRS Dur : 106 ms QT Int : 398 ms P-R-T Axes : 52 53 23 degrees QTcB Int : 444 ms Sinus rhythm with 1st degree A-V block with occasional Premature ventricular complexes Incomplete right bundle branch block Possible Inferior infarct (cited on or before 08-Nov-2011) Poor R wave progression, consider anterior VA vs. lead placement vs. LVH Abnormal ECG When compared with ECG of 06-May-2023 11:11, No significant change was found Confirmed by Juan Espinal ([id number]) on 05/07/2024 10:39:27 AM Referred By: REFERRED SELF Confirmed By: Juan Espinal
--- NOTE | 2024-05-07 12:16 | Hospitalist Progress Note ---
Date of Service May 07, 2024 Assessment & Plan (1) Tenosynovitis of wrist flexor: (2) Abscess of forearm, right: (3) CAD (coronary artery disease): (4) Chronic diastolic CHF (congestive heart failure): (5) Hypertension: (6) Type 2 diabetes mellitus: (7) DANIEL on CPAP: (8) Morbid obesity with BMI of 50.0-59.9, adult: Plan 59-year-old female with past medical history of coronary disease status post stent in the remote past on dual antiplatelet therapy, morbid obesity, chronic diastolic congestive heart failure, type 2 diabetes mellitus, DANIEL on CPAP presents to the emergency room after she sustained a bike from her cat to her right hand and wrist and failed oral Augmentin as outpatient with worsening pain, redness and edema. #Right wrist/forearm cellulitis/abscess secondary to cat bite Patient was seen by orthopedic surgeon Dr. Refugio Obrien and she will be seen by hand surgeon Dr. Juna Melvin this afternoon I spoke with hand surgery: They would like cardiac clearance given patient's extensive cardiac history Continue IV Unasyn (day 1) Cardiology consult for cardiac clearance/optimization for surgery #Coronary disease status post MCKAYLA to RCA in 2011 #Essential hypertension #Chronic diastolic congestive heart failure with preserved ejection fraction Outpatient auto travel counselor Dr. Stephane Donald Hold spironolactone and hydrochlorothiazide in anticipation for surgery since patient was on IV fluids Continue losartan 100 mg daily Continue aspirin and hold Plavix Continue statin I/O monitoring Daily weights #Type 2 diabetes mellitus #Morbid obesity #Fatty liver A1c is 8.7 Lifestyle counseling regarding diet, exercise and weight loss provided Pharmacy consult for glycemic control She has seen Dr. Sen in the past for fatty liver Monitor LFTs intermittently #DANIEL Continue CPAP at bedtime #Anxiety/depression Continue citalopram 20 mg daily CODE STATUS: Full code DVT prophylaxis: Hold chemical prophylaxis for surgery, bilateral SCDs Care plan discussed with patient, nursing staff Admission and Anticipated Discharge Date Admission Date: May 06, 2024 Subjective Patient seen and examined H&P reviewed Labs reviewed Radiology reviewed Patient reports improvement in her right hand erythema, pain and range of motion She denies any fever, chills, chest pain, shortness of breath, nausea, vomiting, diarrhea, abdominal pain, dizziness, lightheadedness, bright red blood per rectum She is getting up and going to the bathroom Social history: Lives with her spouse. Denies tobacco use. Occasional alcohol use Review of Systems Review of Systems: As per HPI Physical Exam Physical Exam: General: No acute distress Psych: Awake and alert HEENT: Anicteric sclera, moist oral mucosa CVS: Regular rate and rhythm Lungs: Bilateral air entry, no wheezing noted Abdomen: Soft, nontender, no rebound, no guarding Ext: Bilateral lower extremity no edema, no calf tenderness. Right hand edema, erythema noted, patient is able to flex and extend her fingers, bite gale noted with scab on her right hand Neuro: No focal motor deficits noted Results & Data Results & Data Vital Signs (Past 12 Hours) Vital Signs Temp Pulse Resp BP Pulse Ox O2 Del Method 05/07/24 07:58 36.4 C L 73 20 172/70 H 97 Room Air Laboratory Results 05/06/24 05/06/24 05/06/24 18:20 21:33 21:34 WBC 13.46 H RBC 4.71 Hgb 13.6 Hct 41.5 MCV 88.1 MCH 28.9 MCHC 32.8 RDW Std Deviation 40.9 RDW Coeff of Deshaun 12.6 Plt Count 326 MPV 11.1 Immature Gran % (Auto) 0.3 Neut % (Auto) 73.7 Lymph % (Auto) 17.2 [place] % (Auto) 7.2 Eos % (Auto) 1.0 Baso % (Auto) 0.6 Neut # (Auto) 9.92 H Lymph # (Auto) 2.32 [place] # (Auto) 0.97 H Eos # (Auto) 0.13 Baso # (Auto) 0.08 Immature Gran # (Auto) 0.04 ESR Sodium 136 Potassium 3.5 Chloride 97 L Carbon Dioxide 29 Anion Gap 10 BUN 13 Creatinine 0.69 Est Cr Clr Drug Dosing 121.4 eGFR 99.29 BUN/Creatinine Ratio 18.8 Glucose 253 H POC Glucose 212 H Estimat Average Glucose Hemoglobin A1c Calcium 9.9 Total Bilirubin 0.8 AST 32 ALT 44 Alkaline Phosphatase 34 C-Reactive Protein Total Protein 7.6 Albumin 4.6 Globulin 3.0 Albumin/Globulin Ratio 1.5 Nasal Screen MRSA (PCR) Negative 05/06/24 05/07/24 05/07/24 23:07 07:30 07:57 WBC 10.76 RBC 4.21 Hgb 12.3 Hct 37.3 MCV 88.6 MCH 29.2 MCHC 33.0 RDW Std Deviation 41.1 RDW Coeff of Deshaun 12.8 Plt Count 240 MPV 10.9 Immature Gran % (Auto) 0.3 Neut % (Auto) 67.6 Lymph % (Auto) 21.7 [place] % (Auto) 8.6 Eos % (Auto) 1.3 Baso % (Auto) 0.5 Neut # (Auto) 7.29 H Lymph # (Auto) 2.33 [place] # (Auto) 0.92 H Eos # (Auto) 0.14 Baso # (Auto) 0.05 Immature Gran # (Auto) 0.03 ESR 31 H Sodium 137 Potassium 3.7 Chloride 99 Carbon Dioxide 29 Anion Gap 9 BUN 15 Creatinine 0.62 Est Cr Clr Drug Dosing 135.1 eGFR 101.89 BUN/Creatinine Ratio 24.2 H Glucose 180 H POC Glucose 155 H 174 H Estimat Average Glucose 203 Hemoglobin A1c 8.7 H Calcium 9.2 Total Bilirubin AST ALT Alkaline Phosphatase C-Reactive Protein 1.84 H Total Protein Albumin Globulin Albumin/Globulin Ratio Nasal Screen MRSA (PCR) 05/07/24 11:50 WBC RBC Hgb Hct MCV MCH MCHC RDW Std Deviation RDW Coeff of Deshaun Plt Count MPV Immature Gran % (Auto) Neut % (Auto) Lymph % (Auto) [place] % (Auto) Eos % (Auto) Baso % (Auto) Neut # (Auto) Lymph # (Auto) [place] # (Auto) Eos # (Auto) Baso # (Auto) Immature Gran # (Auto) ESR Sodium Potassium Chloride Carbon Dioxide Anion Gap BUN Creatinine Est Cr Clr Drug Dosing eGFR BUN/Creatinine Ratio Glucose POC Glucose 207 H Estimat Average Glucose Hemoglobin A1c Calcium Total Bilirubin AST ALT Alkaline Phosphatase C-Reactive Protein Total Protein Albumin Globulin Albumin/Globulin Ratio Nasal Screen MRSA (PCR) Diagnostic Findings Wrist MRI 05/06/24 18:30 Exam(s): MRI RIGHT WRIST W/WO Contrast IV Amt: 13cc gadavist EXAM: MR Right Upper Extremity Without and With Intravenous Contrast, Wrist CLINICAL HISTORY: Reason for exam: Cat bite with infected flexor tenosynovitis. TECHNIQUE: Multiplanar magnetic resonance images of the right wrist without and with intravenous contrast. CONTRAST: Patient received 13cc gadavist of IV contrast COMPARISON: Left hand radiographs 11/25/22 FINDINGS: There is no evidence of acute fracture or dislocation. There is no bone marrow edema. There is no evidence of septic arthritis or osteomyelitis. Nonspecific intraosseous cyst within the proximal scaphoid is most likely on the basis of overlying chondral loss. There is mild osteoarthritis of the triscaphe joint and severe osteoarthritis of the first CMC joint. Carpal alignment is normal. Scapholunate and lunotriquetral ligaments are intact. Angular fibrocartilage complex is intact. Carpal tunnel appears normal. Flexor retinaculum is intact. Median nerve appears normal. Flexor tendons appear normal. There is no palmar bursitis. Ulnar nerve appears unremarkable. Extensor tendons appear intact. There is mild tenosynovitis of the first and second extensor compartments of the wrist. There is a 1.6 x 1.6 x 0.7 cm peripherally enhancing fluid collection within the subcutaneous tissues lateral to the abductor pollicis longus tendon at the level of the distal radius (series 4, image 13). There is diffuse subcutaneous edema and soft tissue swelling along the dorsal and radial aspect of the wrist. IMPRESSION: 1. Dorsal and radial cellulitis of the wrist. 2. Rim-enhancing fluid collection lateral to the abductor pollicis longus tendon at the level of the distal radius (series 4, image 13). This measures 1.6 x 1.6 x 0.7 cm and could represent a soft tissue abscess. 3. Mild tenosynovitis of the first and second extensor compartments of the wrist. Electronically signed by: Geena Baltazar M.D. 05/06/24 21:16 PM Chest X-Ray 05/07/24 06:00 XR chest 1V portable CLINICAL HISTORY: Preoperative evaluation. COMPARISON STUDY: Chest radiograph May 06, 2023. FINDINGS: Moderate cardiomegaly is noted. There is no evidence for pulmonary edema. No pneumothorax or pleural effusion is present. There is no consolidation. Elevation/eventration of the right hemidiaphragm is again noted. IMPRESSION: No acute cardiopulmonary findings. Cardiomegaly. ACT 112: Negative or not required by law. Electronically signed by: Jose Miguel Connors M.D. 05/07/2024 8:19 AM PG Care Time/CCT Total # of Minutes Spent Total Time Spent with Patient: Total time spent is greater than 50% in coordination of care (as documented) at patient's floor/unit and/or counseling patient: Coding Level of Care Code 92896 SUB INP/OBS CARE 3/50MIN Diagnoses Tenosynovitis of wrist flexor M65.939 Abscess of forearm, right L02.413 CAD (coronary artery disease) I25.10 Chronic diastolic CHF (congestive heart failure) I50.32 Hypertension I10 Type 2 diabetes mellitus E11.9 DANIEL on CPAP G47.33; Z99.89 Morbid obesity with BMI of 50.0-59.9, adult E66.01; Z68.43
--- NOTE | 2024-05-07 14:14 | Pharmacy Report ---
Pharmacy Glycemic Short Note 2 - Date of Service May 07, 2024 - Glycemic Short BSG Results (Last 24 hours): 05/06/24 05/06/24 05/06/24 18:20 21:34 23:07 Glucose 253 H POC Glucose 212 H 155 H 05/07/24 05/07/24 05/07/24 07:30 07:57 11:50 Glucose 180 H POC Glucose 174 H 207 H OUTPATIENT ANTIDIABETIC REGIMEN: * Metformin 500mg po daily * Ozempic 1mg SQ weekly HbA1c: 8.7% on 05/07/24 ASSESSMENT: * 59 year old female admitted 05/06 for tenosynovitis of wrist flexor secondary to a cat bite. Patient is a poorly controlled type 2 diabetic as an outpatient. Pharmacy has been consulted for glycemic management while she is admitted. * Initial BSG yesterday was elevated at 253mg/dl. * Basal insulin has not yet been started as she was not on any insulin at home. * Conservative novolog dosing was started last night due to NPO status and no steroids have been given. However, patient has been refusing some doses of insulin. This bolus dosing will be continued today and will adjust further if needed. PLAN FOR INPATIENT GLYCEMIC CONTROL: * Hold outpatient diabetes medications * No Basal insulin * Bolus insulin * NovoLog per scale ACHS or Q6hrs while NPO * Goal Range: Low 110 mg/dL - High 140 mg/dL * Correction Factor: 45 mg/dL/unit * Nutritional / Prandial insulin per carb ratio of 1 unit per 15 grams CHO consumed
--- NOTE | 2024-05-07 14:35 | XRay Report ---
XR wrist RT min 3V routine CLINICAL HISTORY: cat bite COMPARISON: Right hand radiographs November 25, 2022. MRI of the right wrist May 06, 2024. FINDINGS: Alignment of the right wrist is anatomic. There are no fractures. No bony erosions are gloria ntified. There is severe joint space narrowing of the right first carpometacarpal joint. No radiopaqu e foreign bodies are identified. Wrist soft tissue swelling is noted. IMPRESSION: 1. No fractures within the right wrist. No evidence for acute osteomyelitis. Right wrist soft tissue swelling. 2. Severe osteoarthritis of the right first carpometacarpal joint. ACT 112: Negative or not required by law. Electronically signed by: Jose Miguel Connors M.D. 05/07/2024 2:34 PM
--- NOTE | 2024-05-07 16:07 | Cardiology Consultation ---
Date of Consultation May 07, 2024 Assessment & Plan (1) CAD (coronary artery disease): Plan 1. Coronary artery disease: She has remote history of myocardial infarction. Most recent evaluation in 2014 demonstrated preserved LV systolic function without regional wall motion abnormalities. While she is quite sedentary, she does not describe concerning symptoms for unstable coronary disease, high risk valvular disease, arrhythmias or heart failure. Given the low risk nature of the intended surgery do not believe she requires additional testing. She is on dual antiplatelet therapy but Plavix could certainly be held to facilitate surgery if required. Otherwise, standard precautions are recommended which would include maintaining good oxygenation, avoiding significant blood loss or anemia, avoiding severely elevated or low blood pressure and significant tachycardia. Revised cardiac risk index suggests less than 1% chance of complication. History of Present Illness Reason for Consultation: History of coronary artery disease Requesting Physician: Vicki Attending Physician: Ilir Cohen MD History of Present Illness The patient is a 59-year-old woman with a history of coronary artery disease having suffered an acute myocardial infarction in 2011. At that time she underwent percutaneous intervention to the right coronary artery. Subsequently she has done quite well. She has not had recurrent symptoms of chest discomfort or angina. Her initial presentation primarily involve back discomfort between her shoulder blades. She has not had a recurrence of this symptom. She is admittedly sedentary due to hip discomfort. She has difficulty ambulating long distances. She generally does not as send stairs. However, she is able to perform routine activities such as housework, vacuuming and shopping. She is able to push a shopping cart through a grocery store and carry groceries to her car. She did not report symptoms associated with that activity with the exception of hip discomfort. No exertional dyspnea, no exertional chest or back pain. She has very fleeting palpitations that last less than a second. No extended episodes. She did not endorse symptoms of dizziness or lightheadedness. She is being evaluated for a right hand infection. Apparently this was related to a cat bite. She has been on oral and intravenous antibiotic but may require operative intervention for resolution. Allergies Allergy/AdvReac Type Severity Reaction Status Date / Time codeine AdvReac Intermediate NAUSEA AND Unverified 05/06/24 19:00 VOMITING meperidine AdvReac Intermediate NAUSEA AND Unverified 05/06/24 19:00 VOMITING atorvastatin AdvReac Mild makes her Verified 05/06/24 20:15 sick diltiazem AdvReac Mild makes her Verified 05/06/24 20:15 sick hydromorphone [From Dilaudid] AdvReac Mild makes her Verified 05/06/24 20:15 sick lisinopril AdvReac Mild makes her Verified 05/06/24 20:15 sick Home Medications Medication Instructions Recorded Confirmed Type cetirizine 10 mg tablet 10 mg PO DAILY PRN allergy symptoms 05/06/19 05/06/24 History citalopram 20 mg tablet 20 mg PO QAM 05/06/19 05/06/24 History multivitamin with minerals 1 tab PO QAM 05/06/19 05/06/24 History (Multiple Vitamin-Minerals tablet) nitroglycerin 0.4 mg sublingual 0.4 mg sublingual Q5M PRN chest 05/06/19 05/06/24 History tablet pain #25 tabs metformin 500 mg tablet,extended 500 mg PO QAM #180 tabs 12/17/21 05/06/24 History release 24 hr rosuvastatin 5 mg tablet 5 mg PO .COMPLEX #45 tabs 08/18/23 05/06/24 Rx amoxicillin 875 mg-potassium 1 tab PO BID 05/06/24 05/06/24 History clavulanate 125 mg tablet aspirin 81 mg tablet,delayed 81 mg PO QAM 05/06/24 05/06/24 History release clopidogrel 75 mg tablet 75 mg PO QAM 05/06/24 05/06/24 History ezetimibe 10 mg tablet 10 mg PO QAM 05/06/24 05/06/24 History hydrochlorothiazide 25 mg tablet 25 mg PO QAM 05/06/24 05/06/24 History losartan 100 mg tablet 100 mg PO QAM 05/06/24 05/06/24 History semaglutide 1 mg/dose (4 mg/3 mL) 1 mg subcut WK 05/06/24 05/06/24 History subcutaneous pen injector (Ozempic) spironolactone 25 mg tablet 25 mg PO QAM 05/06/24 05/06/24 History Patient History Medical History Hyperlipidemia Sleep apnea Morbid obesity with BMI of 50.0-59.9, adult Anxiety Former smoker Inferior myocardial infarction Surgical History H/O elbow surgery History of carpal tunnel surgery Hx laparoscopic cholecystectomy Family History Father Myocardial infarction Cardiomyopathy Mother Lupus Social History Smoking Status: Former smoker Hx Alcohol Use: No Hx Substance Use: No Preferred Language: Turkmen Communication Ability: Effective Scientific Informatics Project Leader Required: No Beliefs That Will Affect Care: None marital status: Current Living Situation: Spouse current occupational status: employed Feels Safe at Home: Yes Safety Concerns: Feels Safe At This Time Assistive Devices: CPAP Review of Systems Review of Systems: Per HPI Physical Exam Physical Exam: She is alert and oriented x3. Mood affect appear normal. She answered all questions appropriately. Obese HEENT: Sclerae are anicteric. Pupils are equal and reactive to light and accommodation. Extraocular movements were intact. Neuro: Cranial nerves intact Lungs: Lungs are clear to auscultation bilaterally. There are no rales wheezes or rhonchi. She has normal respiratory effort without use of accessory muscles. There is normal pulmonary excursion. Cardiac: The rhythm was regular. S1 and S2 were normal. There are no murmurs on examination. The PMI was not markedly displaced on palpation. Abdomen: The abdomen was soft and nontender. Extremities: Left radial pulse was normal in intensity. There is no evidence cyanosis or clubbing. There was no evidence of significant peripheral edema bilaterally. Right hand demonstrates erythema along the thenar eminence and right forearm. Skin: There are no rashes noted on examination today. Results & Data Vital Signs (Past 12 Hours) Vital Signs Temp Pulse Resp BP Pulse Ox O2 Del Method 05/07/24 07:58 36.4 C L 73 20 172/70 H 97 Room Air 05/07/24 07:30 Room Air Laboratory Results Abnormal Lab Results 05/06/24 05/06/24 05/06/24 18:20 21:33 21:34 WBC 13.46 H RBC 4.71 Hgb 13.6 Hct 41.5 MCV 88.1 MCH 28.9 MCHC 32.8 RDW Std Deviation 40.9 RDW Coeff of Deshaun 12.6 Plt Count 326 MPV 11.1 Immature Gran % (Auto) 0.3 Neut % (Auto) 73.7 Lymph % (Auto) 17.2 [place] % (Auto) 7.2 Eos % (Auto) 1.0 Baso % (Auto) 0.6 Neut # (Auto) 9.92 H Lymph # (Auto) 2.32 [place] # (Auto) 0.97 H Eos # (Auto) 0.13 Baso # (Auto) 0.08 Immature Gran # (Auto) 0.04 ESR Sodium 136 Potassium 3.5 Chloride 97 L Carbon Dioxide 29 Anion Gap 10 BUN 13 Creatinine 0.69 Est Cr Clr Drug Dosing 121.4 eGFR 99.29 BUN/Creatinine Ratio 18.8 Glucose 253 H POC Glucose 212 H Estimat Average Glucose Hemoglobin A1c Calcium 9.9 Total Bilirubin 0.8 AST 32 ALT 44 Alkaline Phosphatase 34 C-Reactive Protein Total Protein 7.6 Albumin 4.6 Globulin 3.0 Albumin/Globulin Ratio 1.5 Nasal Screen MRSA (PCR) Negative 05/06/24 05/07/24 05/07/24 23:07 07:30 07:57 WBC 10.76 RBC 4.21 Hgb 12.3 Hct 37.3 MCV 88.6 MCH 29.2 MCHC 33.0 RDW Std Deviation 41.1 RDW Coeff of Deshaun 12.8 Plt Count 240 MPV 10.9 Immature Gran % (Auto) 0.3 Neut % (Auto) 67.6 Lymph % (Auto) 21.7 [place] % (Auto) 8.6 Eos % (Auto) 1.3 Baso % (Auto) 0.5 Neut # (Auto) 7.29 H Lymph # (Auto) 2.33 [place] # (Auto) 0.92 H Eos # (Auto) 0.14 Baso # (Auto) 0.05 Immature Gran # (Auto) 0.03 ESR 31 H Sodium 137 Potassium 3.7 Chloride 99 Carbon Dioxide 29 Anion Gap 9 BUN 15 Creatinine 0.62 Est Cr Clr Drug Dosing 135.1 eGFR 101.89 BUN/Creatinine Ratio 24.2 H Glucose 180 H POC Glucose 155 H 174 H Estimat Average Glucose 203 Hemoglobin A1c 8.7 H Calcium 9.2 Total Bilirubin AST ALT Alkaline Phosphatase C-Reactive Protein 1.84 H Total Protein Albumin Globulin Albumin/Globulin Ratio Nasal Screen MRSA (PCR) 05/07/24 11:50 WBC RBC Hgb Hct MCV MCH MCHC RDW Std Deviation RDW Coeff of Deshaun Plt Count MPV Immature Gran % (Auto) Neut % (Auto) Lymph % (Auto) [place] % (Auto) Eos % (Auto) Baso % (Auto) Neut # (Auto) Lymph # (Auto) [place] # (Auto) Eos # (Auto) Baso # (Auto) Immature Gran # (Auto) ESR Sodium Potassium Chloride Carbon Dioxide Anion Gap BUN Creatinine Est Cr Clr Drug Dosing eGFR BUN/Creatinine Ratio Glucose POC Glucose 207 H Estimat Average Glucose Hemoglobin A1c Calcium Total Bilirubin AST ALT Alkaline Phosphatase C-Reactive Protein Total Protein Albumin Globulin Albumin/Globulin Ratio Nasal Screen MRSA (PCR) Diagnostic Findings PCI to the right coronary artery November 2011. Admitted subsequent to intervention for presumed pericarditis. Echocardiogram 01/2015: Normal LV systolic function without regional wall motion abnormalities. Stage I diastolic dysfunction. Mild LVH. No valvular heart disease. Chest x-ray 05/07/2024: No acute cardiopulmonary findings. ECG Additional Comments: EKG demonstrated normal sinus rhythm with single PVC. Old inferior myocardial infarction PG Care Time/CCT Total # of Minutes Spent Total Time Spent with Patient: Total time spent is greater than 50% in coordination of care (as documented) at patient's floor/unit and/or counseling patient: Coding Level of Care Code 86183 IN/OBS CONSULT LVL 4,60M Diagnoses CAD (coronary artery disease) I25.10
--- NOTE | 2024-05-07 17:09 | Consultation ---
Date of Consultation May 07, 2024 Assessment & Plan (1) Abscess of forearm, right: She exhibits evidence of deep abscess in the forearm which is worsening with time. At this point she is failed conservative treatment with IV antibiotics. Will plan for: -Right wrist incision and drainage of abscess. Will plan for surgical treatment tomorrow in the morning. N.p.o. after midnight. Will hold Plavix until after surgery. Risk and benefits have been discussed including but not limited to stiffness, failure to improve, recurrent infection, tendon and nerve injury, anesthesia complications. She is agreeable and wishes to proceed. History of Present Illness Requesting Physician: Hospitalist Reason for Consultation: Hand surgery consultation Attending Physician: Ilir Cohen MD History of Present Illness This is a female who is known to me from previous trigger finger release in the remote past. She presents several days after cat bite with failure of outpatient antibiotics. She remains with increasing pain and swelling. She notes over the past afternoon increasing swelling localized to the volar wrist in the region of the puncture wound. Allergies Allergy/AdvReac Type Severity Reaction Status Date / Time codeine AdvReac Intermediate NAUSEA AND Unverified 05/06/24 19:00 VOMITING meperidine AdvReac Intermediate NAUSEA AND Unverified 05/06/24 19:00 VOMITING atorvastatin AdvReac Mild makes her Verified 05/06/24 20:15 sick diltiazem AdvReac Mild makes her Verified 05/06/24 20:15 sick hydromorphone [From Dilaudid] AdvReac Mild makes her Verified 05/06/24 20:15 sick lisinopril AdvReac Mild makes her Verified 05/06/24 20:15 sick Home Medications Medication Instructions Recorded Confirmed Type cetirizine 10 mg tablet 10 mg PO DAILY PRN allergy symptoms 05/06/19 05/06/24 History citalopram 20 mg tablet 20 mg PO QAM 05/06/19 05/06/24 History multivitamin with minerals 1 tab PO QAM 05/06/19 05/06/24 History (Multiple Vitamin-Minerals tablet) nitroglycerin 0.4 mg sublingual 0.4 mg sublingual Q5M PRN chest 05/06/19 05/06/24 History tablet pain #25 tabs metformin 500 mg tablet,extended 500 mg PO QAM #180 tabs 12/17/21 05/06/24 History release 24 hr rosuvastatin 5 mg tablet 5 mg PO .COMPLEX #45 tabs 08/18/23 05/06/24 Rx amoxicillin 875 mg-potassium 1 tab PO BID 05/06/24 05/06/24 History clavulanate 125 mg tablet aspirin 81 mg tablet,delayed 81 mg PO QAM 05/06/24 05/06/24 History release clopidogrel 75 mg tablet 75 mg PO QAM 05/06/24 05/06/24 History ezetimibe 10 mg tablet 10 mg PO QAM 05/06/24 05/06/24 History hydrochlorothiazide 25 mg tablet 25 mg PO QAM 05/06/24 05/06/24 History losartan 100 mg tablet 100 mg PO QAM 05/06/24 05/06/24 History semaglutide 1 mg/dose (4 mg/3 mL) 1 mg subcut WK 05/06/24 05/06/24 History subcutaneous pen injector (Ozempic) spironolactone 25 mg tablet 25 mg PO QAM 05/06/24 05/06/24 History Patient History Medical History Hyperlipidemia Sleep apnea Morbid obesity with BMI of 50.0-59.9, adult Anxiety Former smoker Inferior myocardial infarction Surgical History H/O elbow surgery History of carpal tunnel surgery Hx laparoscopic cholecystectomy Family History Father Myocardial infarction Cardiomyopathy Mother Lupus Social History Smoking Status: Former smoker Hx Alcohol Use: No Hx Substance Use: No Preferred Language: Ivorian Communication Ability: Effective Corporate Development Analyst Required: No Beliefs That Will Affect Care: None marital status: Current Living Situation: Spouse current occupational status: employed Feels Safe at Home: Yes Safety Concerns: Feels Safe At This Time Assistive Devices: CPAP Physical Exam Musculoskeletal: Right upper extremity exam: She has no evidence of septic joint and no evidence of septic flexor tenosynovitis with negative knaval signs. She has cellulitis which is decreasing compared to the conde. However, she has localized abscess w hich is palpable and fluctuant over the volar puncture wound. This is about the size of a large gumball Results & Data Vital Signs (Past 12 Hours) Vital Signs Temp Pulse Resp BP Pulse Ox O2 Del Method 05/07/24 16:12 36.4 C L 77 16 170/83 H 96 Room Air 05/07/24 07:58 36.4 C L 73 20 172/70 H 97 Room Air 05/07/24 07:30 Room Air
[2024-05-07] MEDS: ACETAMINOPHEN 500 MG TAB PO PRN (21:44)
[2024-05-07] MEDS: CETIRIZINE HCL 10 MG TABLET PO PRN (21:46)
[2024-05-08] MEDS: KETOROLAC TROMETHAMINE 10 MG TABLET PO STA (00:33)
[2024-05-08] MEDS ORDERED: Nursing to Pharmacy Communication SCH (05:45)
[2024-05-08] MEDS: INSULIN ASPART PER UNIT CHARGE SC SCH ×2 (06:19→17:29)
--- NOTE | 2024-05-08 07:19 | Anesthesiology Consultation ---
Date of Service May 08, 2024 Assessment & Plan Chart Review Chart Review: Acceptable Risk for Surgery and Patient NOT seen in Pre Admission Testing Consults Requested none ASA ASA4 Proposed Anesthesia Anesthesia Type: General History Surgery Operation Date: 05/08/24 09:00 Proposed Procedures p Incision and Drainage Right Hand - Juan Melvin MD Height/Weight Height: 5 ft 4 in Weight: 139.6 kg Allergies Allergy/AdvReac Type Severity Reaction Status Date / Time codeine AdvReac Intermediate NAUSEA AND Unverified 05/06/24 19:00 VOMITING meperidine AdvReac Intermediate NAUSEA AND Unverified 05/06/24 19:00 VOMITING atorvastatin AdvReac Mild makes her Verified 05/06/24 20:15 sick diltiazem AdvReac Mild makes her Verified 05/06/24 20:15 sick hydromorphone [From Dilaudid] AdvReac Mild makes her Verified 05/06/24 20:15 sick lisinopril AdvReac Mild makes her Verified 05/06/24 20:15 sick Medications Home Medications Medication Instructions Recorded Confirmed Last Taken cetirizine 10 mg tablet 10 mg PO DAILY PRN allergy symptoms 05/06/19 05/06/24 Unknown citalopram 20 mg tablet 20 mg PO QAM 05/06/19 05/06/24 05/06/24 multivitamin with minerals 1 tab PO QAM 05/06/19 05/06/24 05/06/24 (Multiple Vitamin-Minerals tablet) nitroglycerin 0.4 mg sublingual 0.4 mg sublingual Q5M PRN chest 05/06/19 05/06/24 Unknown tablet pain #25 tabs metformin 500 mg tablet,extended 500 mg PO QAM #180 tabs 12/17/21 05/06/24 05/06/24 release 24 hr rosuvastatin 5 mg tablet 5 mg PO .COMPLEX #45 tabs 08/18/23 05/06/24 05/05/24 amoxicillin 875 mg-potassium 1 tab PO BID 05/06/24 05/06/24 05/06/24 clavulanate 125 mg tablet aspirin 81 mg tablet,delayed 81 mg PO QAM 05/06/24 05/06/24 05/06/24 release clopidogrel 75 mg tablet 75 mg PO QAM 05/06/24 05/06/24 05/06/24 ezetimibe 10 mg tablet 10 mg PO QAM 05/06/24 05/06/24 05/06/24 hydrochlorothiazide 25 mg tablet 25 mg PO QAM 05/06/24 05/06/24 05/06/24 losartan 100 mg tablet 100 mg PO QAM 05/06/24 05/06/24 05/06/24 semaglutide 1 mg/dose (4 mg/3 mL) 1 mg subcut WK 05/06/24 05/06/24 05/04/24 subcutaneous pen injector (Ozempic) spironolactone 25 mg tablet 25 mg PO QAM 05/06/24 05/06/24 05/06/24 Active Medications Generic Name Dose Route Start Last Admin Trade Name Freq PRN Reason Stop Dose Admin Acetaminophen 1,000 mg 05/07/24 18:48 05/08/24 05:51 Acetaminophen 500 Mg Tab PO 06/05/24 23:31 1,000 mg TID PRN Administration Pain or Fever Aspirin 81 mg 05/07/24 09:00 05/07/24 08:38 Aspirin 81 Mg Ectab PO 06/06/24 08:59 81 mg QAM AILEEN Administration Cetirizine HCl 10 mg 05/06/24 23:01 05/07/24 21:46 Cetirizine Hcl 10 Mg Tablet PO 06/05/24 23:00 10 mg DAILY PRN Administration allergy symptoms Citalopram Hydrobromide 20 mg 05/07/24 09:00 05/07/24 08:38 Citalopram 20 Mg Tab PO 06/06/24 08:59 20 mg QAM AILEEN Administration Ezetimibe 10 mg 05/07/24 09:00 05/07/24 08:38 Ezetimibe 10 Mg Tab PO 06/06/24 08:59 10 mg QAM AILEEN Administration Ampicillin Sodium/Sulbactam Sodium 3,000 mg in 100 mls @ 200 mls/hr 05/07/24 00:00 05/08/24 05:51 Unasyn IV 05/14/24 00:00 200 mls/hr Q6H AILEEN Administration Insulin Aspart 0 units 05/08/24 06:00 05/08/24 06:19 Insulin Aspart Per Unit Charge SC 06/07/24 05:59 Not Given Q6 AILEEN Rosuvastatin Calcium 5 mg 05/07/24 09:00 05/07/24 08:38 Rosuvastatin Calcium 5 Mg Tab PO 06/06/24 08:59 5 mg [id number] AILEEN Administration Past Medical History Medical History Hyperlipidemia Sleep apnea Morbid obesity with BMI of 50.0-59.9, adult Anxiety Former smoker Inferior myocardial infarction CAD s/p PTCA/stent to RCA ASCVD NIDDM HTN HLD Exercise / Class Metabolic Activity III < 4 Walking/Shop/Light housework Past Family History Family History Father Myocardial infarction Cardiomyopathy Mother Lupus Past Surgical History Surgical History H/O elbow surgery History of carpal tunnel surgery Hx laparoscopic cholecystectomy Past Anesthesia History No Hx of Anesthesia Complications and No Family Hx of Anesthesia Complications History of PONV No Hx of PONV and No Hx of Motion Sickness Social History Smoking Status: Former smoker Hx Alcohol Use: No Hx Substance Use: No Physical Exam Vital Signs Last Vital Signs Temp 36.7 C 05/07/24 21:02 Pulse 73 05/07/24 21:02 Resp 18 05/07/24 21:02 BP 155/81 H 05/07/24 21:02 Pulse Ox 97 05/07/24 21:02 O2 Del Method Room Air 05/07/24 21:02 Testing Laboratory Results 05/07/24 07:30 05/07/24 07:30 Hemoglobin A1c 8.7 % (4.5-5.6) H 05/07/24 07:30 05/08/24 05/07/24 05:59 21:24 POC Glucose 135 H 134 H Electrocardiogram Date: 05/07/24 Findings: + NSR @ (@ 74 w/ 1st degree AVB w/ occas. PVC's;IRBBB;poss. infer. infarct,age ?) Chest X-Ray Date: 05/07/24 Findings: + NAD and + cardiomegaly (mod.)
[2024-05-08 07:56] LABS: Basophils # (auto) 0.05 K/uL (0.00-0.20); Basophils % (auto) 0.6 %; Eosinophils # (auto) 0.18 K/uL (0.00-0.50); Eosinophils % (auto) 2.1 %; Hematocrit (blood only) 36.3 % (37.0-47.0); Hemoglobin 12.3 g/dl (12.0-16.0); Immature Granulocytes # (auto) 0.02 K/uL (0.01-0.20); Immature Granulocytes % (auto) 0.2 %; Lymphocytes # (auto) 2.56 K/uL (1.20-3.40); Lymphocytes % (auto) 30.1 %; Mean Corpuscular Hemoglobin 29.5 pg (25.0-34.0); Mean Corpuscular Hgb Conc 33.9 g/dL (32.0-36.0); Mean Corpuscular Volume 87.1 fL (80.0-100.0); Mean Platelet Volume 11.2 fL (9.4-12.4); Monocytes # (auto) 0.73 K/uL (0.11-0.59); Monocytes % (auto) 8.6 %; Neutrophils # (auto) 4.97 K/uL (1.40-6.50); Neutrophils % (auto) 58.4 %; Platelet Count 248 K/uL (130-400); RDW Coefficient of Variation 12.6 % (11.5-14.5); RDW Standard Deviation 40.2 fL (36.4-46.3); Red Blood Count 4.17 M/uL (4.20-5.40); White Blood Count 8.51 K/ul (4.8-10.8)
[2024-05-08 08:12] LABS: BUN Creatinine Ratio 21.7 (10-20); C Reactive Protein 1.44 mg/dl (0-0.5); Magnesium 1.8 mg/dl (1.7-2.4); Potassium 3.5 mmol/L (3.5-5.1)
[2024-05-08] MEDS ORDERED: hydroCHLOROthiazide 25 MG TAB PO SCH (09:00)
[2024-05-08] MEDS ORDERED: SPIRONOLACTONE 25 MG TAB PO SCH (09:00)
[2024-05-08] MEDS ORDERED: fentaNYL citrate PF 100 MCG/2 ML VIAL ONE (09:01)
[2024-05-08] MEDS ORDERED: LIDOCAINE 2% 2 ML VIAL/AMP(20MG/ML) INFIL ONE (09:01)
[2024-05-08] MEDS ORDERED: MIDAZOLAM HCL 1 MG/ML 2ML VIAL ONE ×2 (09:01→09:59)
[2024-05-08] MEDS ORDERED: PROPOFOL IV EMULSION 10 MG/ML 20 ML VIAL IV ONE ×2 (09:01→10:41)
[2024-05-08] MEDS ORDERED: ROPIVACAINE 0.5% 5 MG/ML 30 ML VIAL ONE (09:10)
[2024-05-08] MEDS ORDERED: EPINEPHrine INJ 1 MG/ML AMP ONE (09:11)
--- NOTE | 2024-05-08 09:34 | History & Physical Bridge Note ---
Date of Service May 08, 2024 History & Physical Bridge Note I have examined the patient, reviewed the History & Physical and in the interval since the performance of the History & Physical I have noted the following changes of clinical significance: no changes noted
[2024-05-08] MEDS ORDERED: KETAMINE HCL 10MG/ML SYR ONE (10:00)
[2024-05-08] MEDS: LIDOCAINE 1% LOCAL 20 ML VIAL ONE (10:28)
--- NOTE | 2024-05-08 10:35 | Operative Report ---
Post Operative Report Procedure Date: May 08, 2024 PRE-OP DIAGNOSIS: Right wrist abscess, right first dorsal extensor compartment extensor tenosynovitis POST-OP DIAGNOSIS: Same PROCEDURE: Right wrist incision and drainage of abscess, right first dorsal extensor compartment extensor tenosynovectomy SURGEON: Nic Melvin MD YARD CLEANER: Carson Hutson PA-C ANESTHESIA: Regional block with sedation FINDINGS: Gross purulence localized over the radial aspect of the wrist consistent with abscess. A large amount of extensor tenosynovitis was seen in the first dorsal extensor compartment, with partial rupture of the first dorsal extensor compartment. INDICATIONS: Is a female with progressive pain and swelling over the radial aspect of the wrist. She presents after failure of conservative treatment. She presents for I&D with extensor tenosynovectomy. MRI documents abscess as well as extensor tenosynovitis of the first extensor compartment. The risks and benefits have been discussed including, but not limited to, risk of infection, nerve injury, stiffness, loss of motion, failure to improve, etc. Reasonable outcomes and options of treatment were discussed. An explanation of appropriate alternatives to the procedure that may be advantageous were discussed and their risks and benefits, as well as the risks and benefits of not proceeding with treatment. I offered to answer any additional inquiries concerning the treatment involved. All the patients questions were answered. The patient is agreeable, understanding of the treatment plan and alternatives, and wishes to proceed with the treatment plan. DESCRIPTION OF OPERATION: The patient was identified. The proper procedure and site were verified. A surgical time out was taken and observed. The patient was given perioperative antibiotics prior to the skin incision. After administration of anesthesia, the patient's arm prepped and draped in the usual sterile fashion. I inspected the dorsal hand where she had a puncture wound. There is no significant fluctuance here and I did not detect any fluid accumulation. I felt this did not require surgical treatment, so I focused on the radial and volar aspect of the wrist and forearm. Made a longitudinal incision between the area of pointing in the first dorsal extensor compartment. Dissection was carried down to the skin and subcutaneous tissues. Radial sensory nerve was identified and radial artery was identified. These were protected throughout the procedure. I encountered an abscess which was moderate in size and contain purulent fluid. I performed incision and drainage of abscess. I sent swab for culture from the abscess. I debrided skin subcutaneous tissue and fascia. Identified the first dorsal extensor compartment and there was gross infection in the region. I opened up the first dorsal extensor compartment and identified the APL and EPB tendons. I performed a tenosynovectomy of these tendons with rongeur and scissors. All devitalized material was removed. There is moderate to significant amount of extensor tenosynovitis. I checked the area thoroughly and there was no evidence of any other additional cyst or infection. The area was copiously irrigated with 3 L of normal saline. Tourniquet was let down hemostasis was obtained bipolar electrocautery. Skin was closed with 4-0 nylon and packing was applied. Patient was placed in a soft dressing and sent to the PACU in stable condition. Due to the complex nature of the procedure, the entire surgery was performed with the operational assistance of Carson Hutson PA-C.The assistant health educator, under direct supervision, was involved in the actual performance of all aspects of the surgical procedure including hemostasis, tissue retraction and incision, instrument management, patient positioning, and wound closure. Attestation: I attest to the content of the Intraoperative Record and any orders documented therein. Any exceptions are noted below.
[2024-05-08] MEDS ORDERED: MAGNESIUM HYDROXIDE SUSP 30 ML UDC PO PRN (11:02)
[2024-05-08] MEDS ORDERED: bisacodyL 10 MG SUPP PR PRN (11:02)
[2024-05-08] MEDS ORDERED: NALOXONE HCL 0.4 MG/1 ML VIAL/CARP IV PRN (11:02)
[2024-05-08] MEDS ORDERED: diphenhydrAMINE 50 MG/ML VIAL IV PRN (11:02)
[2024-05-08] MEDS ORDERED: ALUMINUM/MAGNESIUM SUSP 30 ML UDC PO PRN (11:02)
--- NOTE | 2024-05-08 11:25 | Anesthesiology Progress Note ---
Date of Service May 08, 2024 Anesthesia Post Procedure Vital Signs Vital Signs: Temp Pulse Pulse Resp BP Pulse Ox O2 Del Method 05/08/24 11:15 36.1 C L 89 18 126/62 95 Room Air 05/08/24 11:05 76 12 110/60 95 Oxymask 05/08/24 10:55 83 13 126/60 97 Oxymask 05/08/24 10:45 36 C L 84 19 154/65 H 97 Oxymask 05/08/24 07:39 37.2 C 83 17 156/80 H 97 Room Air 05/07/24 21:02 36.7 C 73 18 155/81 H 97 Room Air 05/07/24 16:12 36.4 C L 77 16 170/83 H 96 Room Air O2 Flow Rate 05/08/24 11:15 05/08/24 11:05 2 05/08/24 10:55 4 05/08/24 10:45 6 05/08/24 07:39 05/07/24 21:02 05/07/24 16:12 Pain Intensity Right Wrist: Pain Intensity: 4 Transfer of Care Handoff Completed per policy Notes Mental Status: alert / awake / arousable Patient Amnestic to Procedure: Yes Nausea / Vomiting: adequately controlled Pain: adequately controlled Airway Patency, RR, SpO2: stable & adequate BP & HR: stable & adequate Hydration State: stable & adequate Anesthetic Complications: no major complications apparent
[2024-05-08] MEDS: SODIUM CHLORIDE 0.9% 1,000 ML IV SCH (12:12)
[2024-05-08] MEDS: LOSARTAN POTASSIUM 50 MG TAB PO SCH (12:16)
[2024-05-08] MEDS: POTASSIUM CHLORIDE CRTAB 20 MEQ TABCR PO STA (13:13)
[2024-05-08] MEDS: MAGNESIUM SULFATE / D5W 1 GM/100 ML BAG IV ONE (13:13)
[2024-05-08] MEDS: LANTUS PER UNIT CHARGE SC SCH (13:32)
--- NOTE | 2024-05-08 14:14 | Hospitalist Progress Note ---
Date of Service May 08, 2024 Assessment & Plan (1) Tenosynovitis of wrist flexor: (2) Abscess of forearm, right: (3) CAD (coronary artery disease): (4) Chronic diastolic CHF (congestive heart failure): (5) Hypertension: (6) Type 2 diabetes mellitus: (7) DANIEL on CPAP: (8) Morbid obesity with BMI of 50.0-59.9, adult: Plan 59-year-old female with past medical history of coronary disease status post stent in the remote past on dual antiplatelet therapy, morbid obesity, chronic diastolic congestive heart failure, type 2 diabetes mellitus, DANIEL on CPAP presents to the emergency room after she sustained a bike from her cat to her right hand and wrist and failed oral Augmentin as outpatient with worsening pain, redness and edema. #Right wrist/forearm cellulitis/abscess secondary to cat bite Patient was seen by orthopedic surgeon Dr. Refugio Obrien and hand surgeon Dr. Juan Melvin this afternoon Patient underwent Right wrist incision and drainage of abscess, right first dorsal extensor compartment extensor tenosynovectomy on 05/08/[address] Juan Melvin Intraoperative cultures were sent: Results pending Continue IV Unasyn (day 2) #Coronary disease status post MCKAYLA to RCA in 2011 #Essential hypertension #Chronic diastolic congestive heart failure with preserved ejection fraction Outpatient chief controller tower Dr. Stephane Donald She was seen by cardiology for optimization for surgery Continue losartan 100 mg daily Continue aspirin and hold Plavix until cleared by surgery to resume Plavix Resume diuretics Continue statin I/O monitoring Daily weights #Type 2 diabetes mellitus #Morbid obesity #Fatty liver A1c is 8.7 Lifestyle counseling regarding diet, exercise and weight loss provided Pharmacy consult for glycemic control She has seen Dr. Sen in the past for fatty liver Monitor LFTs intermittently Outpatient follow-up with PCP for referral to endocrinology for diabetes management #DANIEL Continue CPAP at bedtime #Anxiety/depression Continue citalopram 20 mg daily CODE STATUS: Full code DVT prophylaxis: Bilateral SCDs Discharge planning based on results of intraoperative culture, clinical improvement and and surgery recommendations Care plan discussed with patient, nursing staff and updated at bedside Admission and Anticipated Discharge Date Admission Date: May 07, 2024 Subjective Patient seen and examined Labs reviewed Patient's at bedside Patient underwent surgery of her right arm this morning She currently denies any chest pain, shortness of breath, fever, chills, nausea, vomiting, diarrhea, abdominal pain Patient states she has been losing weight on Mounjaro but there was supply issue when she was switched to Ozempic which has not helped as much Physical Exam Physical Exam: General: No acute distress Psych: Awake and alert HEENT: Anicteric sclera, moist oral mucosa CVS: Regular rate and rhythm Lungs: Bilateral air entry, no wheezing noted Abdomen: Soft, nontender, no rebound, no guarding Ext: Bilateral lower extremity no edema, no calf tenderness. Right hand and forearm in dressing Results & Data Results & Data Vital Signs (Past 12 Hours) Vital Signs Temp Pulse Pulse Resp BP Pulse Ox O2 Del Method 05/08/24 11:32 36.3 C L 84 14 126/78 93 Room Air 05/08/24 11:15 36.1 C L 89 18 126/62 95 Room Air 05/08/24 11:05 76 12 110/60 95 Oxymask 05/08/24 10:55 83 13 126/60 97 Oxymask 05/08/24 10:45 36 C L 84 19 154/65 H 97 Oxymask 05/08/24 07:39 37.2 C 83 17 156/80 H 97 Room Air O2 Flow Rate 05/08/24 11:32 05/08/24 11:15 05/08/24 11:05 2 05/08/24 10:55 4 05/08/24 10:45 6 05/08/24 07:39 Laboratory Results Laboratory Results - last 24 hr 05/07/24 05/07/24 05/08/24 16:40 21:24 05:59 WBC RBC Hgb Hct MCV MCH MCHC RDW Std Deviation RDW Coeff of Deshaun Plt Count MPV Immature Gran % (Auto) Neut % (Auto) Lymph % (Auto) Davie % (Auto) Eos % (Auto) Baso % (Auto) Neut # (Auto) Lymph # (Auto) Davie # (Auto) Eos # (Auto) Baso # (Auto) Immature Gran # (Auto) Sodium Potassium Chloride Carbon Dioxide Anion Gap BUN Creatinine Est Cr Clr Drug Dosing eGFR BUN/Creatinine Ratio Glucose POC Glucose 166 H 134 H 135 H Calcium Magnesium C-Reactive Protein 05/08/24 05/08/24 05/08/24 06:50 10:50 11:45 WBC 8.51 RBC 4.17 L Hgb 12.3 Hct 36.3 L MCV 87.1 MCH 29.5 MCHC 33.9 RDW Std Deviation 40.2 RDW Coeff of Deshaun 12.6 Plt Count 248 MPV 11.2 Immature Gran % (Auto) 0.2 Neut % (Auto) 58.4 Lymph % (Auto) 30.1 Davie % (Auto) 8.6 Eos % (Auto) 2.1 Baso % (Auto) 0.6 Neut # (Auto) 4.97 Lymph # (Auto) 2.56 Davie # (Auto) 0.73 H Eos # (Auto) 0.18 Baso # (Auto) 0.05 Immature Gran # (Auto) 0.02 Sodium 139 Potassium 3.5 Chloride 100 Carbon Dioxide 30 Anion Gap 9 BUN 15 Creatinine 0.69 Est Cr Clr Drug Dosing 122.0 eGFR 99.29 BUN/Creatinine Ratio 21.7 H Glucose 137 H POC Glucose 224 H 203 H Calcium 9.0 Magnesium 1.8 C-Reactive Protein 1.44 H Diagnostic Findings Wrist X-Ray 05/07/24 09:50 XR wrist RT min 3V routine CLINICAL HISTORY: cat bite COMPARISON: Right hand radiographs November 25, 2022. MRI of the right wrist May 06, 2024. FINDINGS: Alignment of the right wrist is anatomic. There are no fractures. No bony erosions are identified. There is severe joint space narrowing of the right first carpometacarpal joint. No radiopaque foreign bodies are identified. Wrist soft tissue swelling is noted. IMPRESSION: 1. No fractures within the right wrist. No evidence for acute osteomyelitis. Right wrist soft tissue swelling. 2. Severe osteoarthritis of the right first carpometacarpal joint. ACT 112: Negative or not required by law. Electronically signed by: Jose Miguel Connors M.D. 05/07/2024 2:34 PM PG Care Time/CCT Total # of Minutes Spent Total Time Spent with Patient: Total time spent is greater than 50% in coordination of care (as documented) at patient's floor/unit and/or counseling patient: Coding Level of Care Code 97642 SUB INP/OBS CARE 2/35MIN Diagnoses Tenosynovitis of wrist flexor M65.939 Abscess of forearm, right L02.413 CAD (coronary artery disease) I25.10 Chronic diastolic CHF (congestive heart failure) I50.32 Hypertension I10 Type 2 diabetes mellitus E11.9 DANIEL on CPAP G47.33; Z99.89 Morbid obesity with BMI of 50.0-59.9, adult E66.01; Z68.43
[2024-05-08] MEDS: traMADol HCL 50 MG TABLET PO PRN (23:15)
[2024-05-09 07:52] LABS: Hematocrit (blood only) 35.1 % (37.0-47.0); Hemoglobin 11.7 g/dl (12.0-16.0); Mean Corpuscular Hemoglobin 29.1 pg (25.0-34.0); Mean Corpuscular Hgb Conc 33.3 g/dL (32.0-36.0); Mean Corpuscular Volume 87.3 fL (80.0-100.0); Mean Platelet Volume 10.9 fL (9.4-12.4); Platelet Count 248 K/uL (130-400); RDW Coefficient of Variation 12.5 % (11.5-14.5); Red Blood Count 4.02 M/uL (4.20-5.40); White Blood Count 10.35 K/ul (4.8-10.8)
[2024-05-09 08:05] LABS: BUN Creatinine Ratio 25.8 (10-20); Creatinine Clr Calc Pharmacy 135.7 ml/min; Magnesium 1.9 mg/dl (1.7-2.4); Potassium 3.9 mmol/L (3.5-5.1)
[2024-05-09] MEDS: hydroCHLOROthiazide 25 MG TAB PO SCH (08:38)
[2024-05-09] MEDS: MULTIVITAMIN TAB PO SCH (08:39)
[2024-05-09] MEDS: SPIRONOLACTONE 25 MG TAB PO SCH (08:40)
[2024-05-09] MEDS: LANTUS PER UNIT CHARGE SC SCH (08:40)
--- NOTE | 2024-05-09 10:06 | Orthopedic Progress Note ---
<Statement entered by Refugio Obrien DO - 05/10/24 15:13> Patient doing well postoperative day #1 status post irrigation and debridement of cat bite. Packing was pulled this morning. No acute complaints. Date of Service May 09, 2024 Assessment & Plan (1) Abscess of forearm, right: Plan: Postop day 1 status post irrigation and debridement right wrist. Cultures pending. Gram stain showing no organisms. Patient currently on amp icillin/sulbactam. Plan for daily dressing changes. Patient is feeling better today. She was hoping to be able to go home however we discussed that with her pending cultures it might be better to continue her IV antibiotics for now and then have the possibility of discharge tomorrow. DC Planning - continuation of IV antibiotics with eventual switching over to orals. No further need for further surgery at this time. Plan to follow up with Dr. Melvin or his PA Noreen Lew in about 10 days from the day of surgery for wound check and suture removal. Admission and Anticipated Discharge Date Admission Date: May 07, 2024 Subjective Patient sleeping upon arrival but easily awoken. States she feels little bit tired today. No other complaints. Her block wore off last night and she had some increased pain but her pain is controlled at the current time. Physical Exam Physical Exam: Dressing on the right wrist was removed. All of the iodoform packing was removed. She had some mild dark red drainage that was serous in nature. This quickly terminated after a few seconds. I could not express any further drainage. Incision is well-approximated. There is no overt erythema. She has mild swelling consistent with surgery. She does have swelling it down into all of her fingers also consistent with surgery. She has good range of motion of all her fingers at this time and sensation is intact. Capillary refill is less than 2 seconds. New dressings applied. Results & Data Vital Signs (Past 12 Hours) Vital Signs Temp Pulse Resp BP BP Pulse Ox O2 Del Method 05/09/24 07:29 36.5 C 68 20 146/63 H 95 Room Air 05/09/24 04:38 36.8 C 71 16 117/73 96 Room Air 05/09/24 00:15 36.8 C 78 16 171/78 H 95 Room Air Laboratory Results 05/09/24 05/09/24 05/08/24 Range/Units 07:47 07:20 20:30 WBC 10.35 (4.8-10.8) K/ul RBC 4.02 L (4.20-5.40) M/uL Hgb 11.7 L (12.0-16.0) g/dl Hct 35.1 L (37.0-47.0) % MCV 87.3 (80.0-100.0) fL MCH 29.1 (25.0-34.0) pg MCHC 33.3 (32.0-36.0) g/dL RDW Std Deviation 40.0 (36.4-46.3) fL RDW Coeff of Deshaun 12.5 (11.5-14.5) % Plt Count 248 (130-400) K/uL MPV 10.9 (9.4-12.4) fL Sodium 138 (136-145) mmol/L Potassium 3.9 (3.5-5.1) mmol/L Chloride 101 (98-107) mmol/L Carbon Dioxide 30 (21-32) mmol/L Anion Gap 7 (3-11) BUN 16 (6-23) mg/dl Creatinine 0.62 (0.6-1.2) mg/dl Est Cr Clr Drug Dosing 135.7 ml/min eGFR 101.89 BUN/Creatinine Ratio 25.8 H (10-20) Glucose 137 H (70-99(Fasting)) mg/dl POC Glucose 131 H 143 H (70-99) mg/dl Calcium 9.0 (8.6-10.3) mg/dl Magnesium 1.9 (1.7-2.4) mg/dl 05/08/24 05/08/24 05/08/24 Range/Units 16:43 11:45 10:50 WBC (4.8-10.8) K/ul RBC (4.20-5.40) M/uL Hgb (12.0-16.0) g/dl Hct (37.0-47.0) % MCV (80.0-100.0) fL MCH (25.0-34.0) pg MCHC (32.0-36.0) g/dL RDW Std Deviation (36.4-46.3) fL RDW Coeff of Deshaun (11.5-14.5) % Plt Count (130-400) K/uL MPV (9.4-12.4) fL Sodium (136-145) mmol/L Potassium (3.5-5.1) mmol/L Chloride (98-107) mmol/L Carbon Dioxide (21-32) mmol/L Anion Gap (3-11) BUN (6-23) mg/dl Creatinine (0.6-1.2) mg/dl Est Cr Clr Drug Dosing ml/min eGFR BUN/Creatinine Ratio (10-20) Glucose (70-99(Fasting)) mg/dl POC Glucose 136 H 203 H 224 H (70-99) mg/dl Calcium (8.6-10.3) mg/dl Magnesium (1.7-2.4) mg/dl
--- NOTE | 2024-05-09 13:49 | Hospitalist Progress Note ---
Date of Service May 09, 2024 Assessment & Plan (1) Tenosynovitis of wrist flexor: (2) Abscess of forearm, right: (3) CAD (coronary artery disease): (4) Chronic diastolic CHF (congestive heart failure): (5) Hypertension: (6) Type 2 diabetes mellitus: (7) DANIEL on CPAP: (8) Morbid obesity with BMI of 50.0-59.9, adult: Plan 59-year-old female with past medical history of coronary disease status post stent in the remote past on dual antiplatelet therapy, morbid obesity, chronic diastolic congestive heart failure, type 2 diabetes mellitus, DANIEL on CPAP presents to the emergency room after she sustained a bike from her cat to her right hand and wrist and failed oral Augmentin as outpatient with worsening pain, redness and edema. #Right wrist/forearm cellulitis/abscess secondary to cat bite Patient was seen by orthopedic surgeon Dr. Refugio Obrien and hand surgeon Dr. Juan Melvin this afternoon Patient underwent Right wrist incision and drainage of abscess, right first dorsal extensor compartment extensor tenosynovectomy on 05/08/[address] Juan Melvin Intraoperative cultures were sent: Results pending Continue IV Unasyn (day 3) She will need follow-up with hand surgeon on discharge #Coronary disease status post MCKAYLA to RCA in 2011 #Essential hypertension #Chronic diastolic congestive heart failure with preserved ejection fraction Outpatient business services representative Dr. Stephane Donald She was seen by cardiology for optimization for surgery Continue losartan 100 mg daily Continue aspirin Discussed with Dr. Obrien who saw her today regarding resuming Plavix via secure chat: Okay from his point of view to resume Plavix today Continue diuretics Continue statin I/O monitoring Daily weights #Type 2 diabetes mellitus #Morbid obesity #Fatty liver A1c is 8.7 Lifestyle counseling regarding diet, exercise and weight loss provided Pharmacy consult for glycemic control She has seen Dr. Sen in the past for fatty liver Monitor LFTs intermittently Outpatient follow-up with PCP for referral to endocrinology for diabetes management #DANIEL Continue CPAP at bedtime #Anxiety/depression Continue citalopram 20 mg daily CODE STATUS: Full code DVT prophylaxis: Bilateral SCDs, okay to start Lovenox 40 mg subcutaneous daily for DVT prophylaxis per Dr. Obrien from surgery who saw her today (discussed via secure chat) Discharge planning based on results of intraoperative culture, clinical improvement and and surgery recommendations likely in the next 24 to 48 hours Care plan discussed with patient, nursing staff and updated at bedside Admission and Anticipated Discharge Date Admission Date: May 07, 2024 Subjective Patient seen and examined at bedside Labs reviewed Patient reports improvement in her hand motion, denies any chest pain, shortness of breath, fever, chills Tolerating oral diet without any issues Physical Exam Physical Exam: General: No acute distress Psych: Awake and alert HEENT: Anicteric sclera, moist oral mucosa CVS: Regular rate and rhythm Lungs: Bilateral air entry, no wheezing noted Abdomen: Soft, nontender, no rebound, no guarding Ext: Bilateral lower extremity no edema, no calf tenderness. Right hand and forearm in dressing Results & Data Results & Data Vital Signs (Past 12 Hours) Vital Signs Temp Pulse Resp BP BP Pulse Ox O2 Del Method 05/09/24 07:29 36.5 C 68 20 146/63 H 95 Room Air 05/09/24 04:38 36.8 C 71 16 117/73 96 Room Air Laboratory Results Laboratory Results - last 24 hr 05/08/24 05/08/24 05/09/24 16:43 20:30 07:20 WBC 10.35 RBC 4.02 L Hgb 11.7 L Hct 35.1 L MCV 87.3 MCH 29.1 MCHC 33.3 RDW Std Deviation 40.0 RDW Coeff of Deshaun 12.5 Plt Count 248 MPV 10.9 Sodium 138 Potassium 3.9 Chloride 101 Carbon Dioxide 30 Anion Gap 7 BUN 16 Creatinine 0.62 Est Cr Clr Drug Dosing 135.7 eGFR 101.89 BUN/Creatinine Ratio 25.8 H Glucose 137 H POC Glucose 136 H 143 H Calcium 9.0 Magnesium 1.9 05/09/24 05/09/24 07:47 12:00 WBC RBC Hgb Hct MCV MCH MCHC RDW Std Deviation RDW Coeff of Deshaun Plt Count MPV Sodium Potassium Chloride Carbon Dioxide Anion Gap BUN Creatinine Est Cr Clr Drug Dosing eGFR BUN/Creatinine Ratio Glucose POC Glucose 131 H 168 H Calcium Magnesium PG Care Time/CCT Total # of Minutes Spent Total Time Spent with Patient: Total time spent is greater than 50% in coordination of care (as documented) at patient's floor/unit and/or counseling patient: Coding Level of Care Code 08848 SUB INP/OBS CARE 3/50MIN Diagnoses Tenosynovitis of wrist flexor M65.939 Abscess of forearm, right L02.413 CAD (coronary artery disease) I25.10 Chronic diastolic CHF (congestive heart failure) I50.32 Hypertension I10 Type 2 diabetes mellitus E11.9 DANIEL on CPAP G47.33; Z99.89 Morbid obesity with BMI of 50.0-59.9, adult E66.01; Z68.43
--- NOTE | 2024-05-09 14:55 | Pharmacy Report ---
Pharmacy Glycemic Short Note 2 - Date of Service May 09, 2024 - Glycemic Short BSG Results (Last 24 hours): 05/08/24 05/08/24 05/09/24 16:43 20:30 07:20 Glucose 137 H POC Glucose 136 H 143 H 05/09/24 05/09/24 07:47 12:00 Glucose POC Glucose 131 H 168 H OUTPATIENT ANTIDIABETIC REGIMEN: * Metformin 500mg po daily * Ozempic 1mg SQ weekly HbA1c: 8.7% on 05/07/24 ASSESSMENT: 05/09: * BSGs yesterday were 745-202-205-143 mg/dl. Patient received 5 units of basal and 7 units bolus insulins yesterday. * Fasting BSG today was 131 mg/dl. Continued with same basal insulin dose as yesterday. * Novolog correction was tightened yesterday at lunch. Continued same today. 05/07/24: * 59 year old female admitted 05/06 for tenosynovitis of wrist flexor secondary to a cat bite. Patient is a poorly controlled type 2 diabetic as an outpatient. Pharmacy has been consulted for glycemic management while she is admitted. * Initial BSG yesterday was elevated at 253mg/dl. * Basal insulin has not yet been started as she was not on any insulin at home. * Conservative novolog dosing was started last night due to NPO status and no steroids have been given. However, patient has been refusing some doses of insulin. This bolus dosing will be continued today and will adjust further if needed. PLAN FOR INPATIENT GLYCEMIC CONTROL: * Hold outpatient diabetes medications * Basal insulin * Lantus 5 units SC QAM * Bolus insulin * NovoLog per scale ACHS or Q6hrs while NPO * Goal Range: Low 110 mg/dL - High 140 mg/dL * Correction Factor: 35 mg/dL/unit * Nutritional / Prandial insulin per carb ratio of 1 unit per 15 grams CHO consumed
[2024-05-09] MEDS: ENOXAPARIN INJ 40 MG/0.4 ML SYR SQ SCH (16:56)
[2024-05-09] MEDS: CLOPIDOGREL BISULFATE 75 MG TAB PO ONE (16:57)
[2024-05-09] MEDS: ONDANSETRON INJ 2 MG/ML 2 ML VIAL IV PRN (19:48)
[2024-05-10 06:39] LABS: Basophils # (auto) 0.05 K/uL (0.00-0.20); Basophils % (auto) 0.6 %; Eosinophils # (auto) 0.16 K/uL (0.00-0.50); Eosinophils % (auto) 1.9 %; Hematocrit (blood only) 37.6 % (37.0-47.0); Hemoglobin 12.2 g/dl (12.0-16.0); Immature Granulocytes # (auto) 0.02 K/uL (0.01-0.20); Immature Granulocytes % (auto) 0.2 %; Lymphocytes # (auto) 2.43 K/uL (1.20-3.40); Lymphocytes % (auto) 28.3 %; Mean Corpuscular Hemoglobin 29.1 pg (25.0-34.0); Mean Corpuscular Hgb Conc 32.4 g/dL (32.0-36.0); Mean Corpuscular Volume 89.7 fL (80.0-100.0); Mean Platelet Volume 10.6 fL (9.4-12.4); Monocytes # (auto) 0.71 K/uL (0.11-0.59); Monocytes % (auto) 8.3 %; Neutrophils # (auto) 5.23 K/uL (1.40-6.50); Neutrophils % (auto) 60.7 %; Platelet Count 285 K/uL (130-400); RDW Coefficient of Variation 12.7 % (11.5-14.5); RDW Standard Deviation 41.7 fL (36.4-46.3); Red Blood Count 4.19 M/uL (4.20-5.40)
[2024-05-10 07:02] LABS: BUN Creatinine Ratio 20.9 (10-20); Calcium 9.4 mg/dl (8.6-10.3); Creatinine Clr Calc Pharmacy 126.3 ml/min; Magnesium 1.9 mg/dl (1.7-2.4)
[2024-05-10 07:26] VITALS: BP 120/74; PULSE 62; RESP 20; TEMP 98.1; O2SAT 98
[2024-05-10] MEDS: LANTUS PER UNIT CHARGE SC SCH (08:45)
[2024-05-10] MEDS: CLOPIDOGREL BISULFATE 75 MG TAB PO SCH (08:46)
--- NOTE | 2024-05-10 13:14 | Discharge Summary ---
Discharge Summary Date of Service May 10, 2024 Principal Dx & Hospital Course #1 = Principal Diagnosis (1) Tenosynovitis of wrist flexor: (2) Abscess of forearm, right: (3) CAD (coronary artery disease): (4) Chronic diastolic CHF (congestive heart failure): (5) Hypertension: (6) Type 2 diabetes mellitus: (7) DANIEL on CPAP: (8) Morbid obesity with BMI of 50.0-59.9, adult: Plan 59-year-old female with past medical history of coronary disease status post stent in the remote past on dual antiplatelet therapy, morbid obesity, chronic diastolic congestive heart failure, type 2 diabetes mellitus, DANIEL on CPAP presents to the emergency room after she sustained a bike from her cat to her right hand and wrist and failed oral Augmentin as outpatient with worsening pain, redness and edema. #Right wrist/forearm cellulitis/abscess secondary to cat bite Patient was seen by orthopedic surgeon Dr. Refugio Obrien and hand surgeon Dr. Juan Melvin this afternoon Patient underwent Right wrist incision and drainage of abscess, right first dorsal extensor compartment extensor tenosynovectomy on 05/08/[address] Juan Melvin Intraoperative cultures were sent: Preliminary results show no growth, final report pending Patient is finished 4 days of IV Unasyn and I spoke with the hand surgeon Dr. Melvin via secure chat: He has recommended patient can be discharged on oral A ugmentin with follow-up with his PA as outpatient on , 05/13/2024 in [place] office and sterile dry dressings daily I have switched her antibiotics to oral Augmentin for 5 more days and this can be adjusted by hand surgery team after wound check as outpatient on , 05/13/2024 the patient also instructed to follow-up with them regarding final wound cultures #Coronary disease status post MCKAYLA to RCA in 2011 #Essential hypertension #Chronic diastolic congestive heart failure with preserved ejection fraction Outpatient lane attendant Dr. Stephane Donald She was seen by cardiology for optimization for surgery Continue losartan 100 mg daily Continue aspirin and Plavix Continue diuretics Continue statin Outpatient follow-up with cardiology as needed #Type 2 diabetes mellitus #Morbid obesity #Fatty liver A1c is 8.7 Lifestyle counseling regarding diet, exercise and weight loss provided She has seen Dr. Sen in the past for fatty liver She will resume Ozempic and metformin on discharge Outpatient follow-up with PCP for referral to endocrinology for diabetes management as patient needs better blood sugar control #DANIEL Continue CPAP at bedtime #Anxiety/depression Continue citalopram 20 mg daily Patient seen and examined today. She has been cleared for discharge by hand ana hassan team. I have gone over the discharge care plan with the patient in great detail and answered all her questions. This discharge to greater than 30 minutes to coordinate Admission HPI Per Admitting Provider Ling Buenrostro is a 59 year old female who presents to the ER following a cat bite. Initial by on Friday afternoon. Progressively worsening pain, swelling and erythema. She was seen by her PCP on Friday and started on Augmentin however the redness is continued to progress and she is less able to flex her fingers therefore decided to come to the ER. Current pain severity 2 out of 10. No prior history of MRSA. No fever or chills. Discharge Exam General: No acute distress Psych: Awake and alert HEENT: Anicteric sclera, moist oral mucosa CVS: Regular rate and rhythm Lungs: Bilateral air entry, no wheezing noted Abdomen: Soft, nontender, no rebound, no guarding Ext: Bilateral lower extremity no edema, no calf tenderness. Right hand and forearm in dressing Discharge Plan Discharge Items Patient Disposition: Home - Self-Care Reason For Visit: CAT BITE, CELLULITIS, FLEXOR TENDOSYNOVITIS Discharge Diagnosis: #Right wrist/forearm cellulitis/abscess secondary to cat bite #Coronary disease status post MCKAYLA to RCA in 2011 #Essential hypertension #Chronic diastolic congestive heart failure with preserved ejection fraction #Type 2 diabetes mellitus #Morbid obesity #Fatty liver #DANIEL #Anxiety/depression Condition on Discharge: Good Activity: As commented below Activity Comment: As tolerated, please see hand surgeon instructions Lifting: Wait until after follow-up appointment Bathing: Keep incision dry Bathing Comment: Please see instructions from hand surgeon regarding showering/bathing Exercise/Sports: Wait until after follow-up appointment Driving/Machine Use: No driving until follow-up appointment with hand surgery Non-emergency contact: Primary Care Provider Call non-emergency contact if: you have any medication questions, your symptoms worsen, your pain is not controlled and you have a fever Follow-up/Referrals: Ambar Mendez [Primary Care Provider] - Juan Melvin MD [Physician] - Diet: Carb Consistent or DM2 and Heart Healthy Addtl Attending Provider Instructions: DISCHARGE INSTRUCTION TO PATIENT/FAMILY: Follow-up with your primary care provider within 1 week regarding: Posthospital discharge, medication review, medication refills and follow-up on all your medical problems, diabetes management and referral to endocrinology as outpatient for diabetes management Please take all your discharge medications, discharge information and discharge instructions to all your doctors appointments. Avoid all NSAIDs including ibuprofen, Motrin, Advil, Aleve, naproxen, meloxicam, Toradol, diclofenac As per hand surgeon Dr. Melvin: Dressing change once a day with dry sterile dressings. Keep wound clean and dry. Please follow-up with his PA Ruba Lew on May in the [place] office for postop follow-up and wound check and final wound intraoperative culture reports. You been prescribed 5 days of Augmentin twice daily with meals: Please follow-up with surgeon on , May 13, 2024 to see if you need a longer course of antibiotics after wound check Follow-up with your PCP for referral to endocrinology as outpatient for diabetes management Labs through PCP in 1 week: CBC, CMP, MG, VITAMIN B12 Pending Studies at Discharge: Yes Studies:: Final intraoperative wound culture: follow-up with surgery team for final results ON 05/13/24 Stand-Alone Forms: [employer], Smoking Cessation Medications and DC Order Prescriptions: New amoxicillin-pot clavulanate 875-125 mg Tablet 1 tab PO BIDM 5 Days Qty: 10 0RF acetaminophen [Tylenol Extra Strength] 500 mg Tablet 1,000 mg PO TID PRN (Reason: pain) Qty: 10 0RF Rx Instructions: AVAILABLE OVER THE COUNTER Continued rosuvastatin 5 mg tablet 5 mg PO .COMPLEX Qty: 45 3RF Hold Instructions: Leg pain Rx Instructions: 5 mg PO every other day; MON/WED/FRI nitroglycerin 0.4 mg tablet, sublingual 0.4 mg SL Q5M PRN (Reason: chest pain) Qty: 25 citalopram 20 mg tablet 20 mg PO QAM multivitamin with minerals [Multiple Vitamin-Minerals] tablet 1 tab PO QAM cetirizine 10 mg tablet 10 mg PO DAILY PRN (Reason: allergy symptoms) metformin 500 mg tablet extended release 24 hr 500 mg PO QAM Qty: 180 Ozempic 1 mg/dose (4 mg/3 mL) pen injector 1 mg SUBCUT WK Rx Instructions: TUESDAYS aspirin [Aspirin Low-Strength] 81 mg Tablet,Delayed Release (Dr/Ec) 81 mg PO QAM hydrochlorothiazide 25 mg tablet 25 mg PO QAM losartan 100 mg tablet 100 mg PO QAM clopidogrel 75 mg tablet 75 mg PO QAM ezetimibe 10 mg tablet 10 mg PO QAM spironolactone 25 mg tablet 25 mg PO QAM Discontinued amoxicillin-pot clavulanate 875-125 mg tablet 1 tab PO BID Discharge Orders: Discharge Order- CHF (Routine); Ordered 05/10/24 Ordered By: Ilir Cohen Admission Data Admit Date/Time: 05/07/24 18:27 Attending Provider: Ilir Cohen Admit Provider: Boo Fletcher Primary Care Provider: Ambar Mendez Other Providers: Juan Espinal; Juan Melvin; Ilir Cohen Hospital Stay Data Consultations 05/06/24 23:55 Consult Orthopedic Surgery Routine 05/07/24 09:34 Consult Cardiology Routine Procedures Performed Operation Date: 05/08/24 09:00 Actual Procedures p Incision and Drainage Right Hand, right Exstensor Tineosynovectomy(Right) - Juan Melvin MD Diagnostic Imagining Performed 05/06/24 18:30 MRI wrist [MR wrist RT wo/w con] Stat 05/08/24 09:08 US - OR guided needle placemen Stat Wrist MRI 05/06/24 18:30 Exam(s): MRI RIGHT WRIST W/WO Contrast IV Amt: 13cc gadavist EXAM: MR Right Upper Extremity Without and With Intravenous Contrast, Wrist CLINICAL HISTORY: Reason for exam: Cat bite with infected flexor tenosynovitis. TECHNIQUE: Multiplanar magnetic resonance images of the right wrist without and with intravenous contrast. CONTRAST: Patient received 13cc gadavist of IV contrast COMPARISON: Left hand radiographs 11/25/22 FINDINGS: There is no evidence of acute fracture or dislocation. There is no bone marrow edema. There is no evidence of septic arthritis or osteomyelitis. Nonspecific intraosseous cyst within the proximal scaphoid is most likely on the basis of overlying chondral loss. There is mild osteoarthritis of the triscaphe joint and severe osteoarthritis of the first CMC joint. Carpal alignment is normal. Scapholunate and lunotriquetral ligaments are intact. Angular fibrocartilage complex is intact. Carpal tunnel appears normal. Flexor retinaculum is intact. Median nerve appears normal. Flexor tendons appear normal. There is no palmar bursitis. Ulnar nerve appears unremarkable. Extensor tendons appear intact. There is mild tenosynovitis of the first and second extensor compartments of the wrist. There is a 1.6 x 1.6 x 0.7 cm peripherally enhancing fluid collection within the subcutaneous tissues lateral to the abductor pollicis longus tendon at the level of the distal radius (series 4, image 13). There is diffuse subcutaneous edema and soft tissue swelling along the dorsal and radial aspect of the wrist. IMPRESSION: 1. Dorsal and radial cellulitis of the wrist. 2. Rim-enhancing fluid collection lateral to the abductor pollicis longus tendon at the level of the distal radius (series 4, image 13). This measures 1.6 x 1.6 x 0.7 cm and could represent a soft tissue abscess. 3. Mild tenosynovitis of the first and second extensor compartments of the wrist. Electronically signed by: Geena Baltazar M.D. 05/06/24 21:16 PM Chest X-Ray 05/07/24 06:00 XR chest 1V portable CLINICAL HISTORY: Preoperative evaluation. COMPARISON STUDY: Chest radiograph May 06, 2023. FINDINGS: Moderate cardiomegaly is noted. There is no evidence for pulmonary edema. No pneumothorax or pleural effusion is present. There is no consolidation. Elevation/eventration of the right hemidiaphragm is again noted. IMPRESSION: No acute cardiopulmonary findings. Cardiomegaly. ACT 112: Negative or not required by law. Electronically signed by: Jose Miguel Connors M.D. 05/07/2024 8:19 AM Wrist X-Ray 05/07/24 09:50 XR wrist RT min 3V routine CLINICAL HISTORY: cat bite COMPARISON: Right hand radiographs November 25, 2022. MRI of the right wrist May 06, 2024. FINDINGS: Alignment of the right wrist is anatomic. There are no fractures. No bony erosions are identified. There is severe joint space narrowing of the right first carpometacarpal joint. No radiopaque foreign bodies are identified. Wrist soft tissue swelling is noted. IMPRESSION: 1. No fractures within the right wrist. No evidence for acute osteomyelitis. Right wrist soft tissue swelling. 2. Severe osteoarthritis of the right first carpometacarpal joint. ACT 112: Negative or not required by law. Electronically signed by: Jose Miguel Connors M.D. 05/07/2024 2:34 PM 05/08/24 10:20 Gram Stain - Final Wrist,Right Aerobic and Anaerobic Culture - Preliminary No growth to date. 05/10/24 05/10/24 05/10/24 11:29 07:33 06:13 WBC 8.60 RBC 4.19 L Hgb 12.2 Hct 37.6 MCV 89.7 MCH 29.1 MCHC 32.4 RDW Std Deviation 41.7 RDW Coeff of Deshaun 12.7 Plt Count 285 MPV 10.6 Immature Gran % (Auto) 0.2 Neut % (Auto) 60.7 Lymph % (Auto) 28.3 [place] % (Auto) 8.3 Eos % (Auto) 1.9 Baso % (Auto) 0.6 Neut # (Auto) 5.23 Lymph # (Auto) 2.43 [place] # (Auto) 0.71 H Eos # (Auto) 0.16 Baso # (Auto) 0.05 Immature Gran # (Auto) 0.02 Sodium 138 Potassium 4.0 Chloride 99 Carbon Dioxide 30 Anion Gap 9 BUN 14 Creatinine 0.67 Est Cr Clr Drug Dosing 126.3 eGFR 100.00 BUN/Creatinine Ratio 20.9 H Glucose 129 H POC Glucose 150 H 146 H Calcium 9.4 Magnesium 1.9 05/09/24 05/09/24 20:59 16:31 WBC RBC Hgb Hct MCV MCH MCHC RDW Std Deviation RDW Coeff of Deshaun Plt Count MPV Immature Gran % (Auto) Neut % (Auto) Lymph % (Auto) [place] % (Auto) Eos % (Auto) Baso % (Auto) Neut # (Auto) Lymph # (Auto) [place] # (Auto) Eos # (Auto) Baso # (Auto) Immature Gran # (Auto) Sodium Potassium Chloride Carbon Dioxide Anion Gap BUN Creatinine Est Cr Clr Drug Dosing eGFR BUN/Creatinine Ratio Glucose POC Glucose 159 H 191 H Calcium Magnesium Pending Results Patient Have Any Pending Studies at Discharge: Yes Discharge Instructions Given to Patient (Per Discharging Provider) DISCHARGE INSTRUCTION TO PATIENT/FAMILY: Follow-up with your primary care provider within 1 week regarding: Posthospital discharge, medication review, medication refills and follow-up on all your medical problems, diabetes management and referral to endocrinology as outpatient for diabetes management Please take all your discharge medications, discharge information and discharge instructions to all your doctors appointments. Avoid all NSAIDs including ibuprofen, Motrin, Advil, Aleve, naproxen, meloxicam, Toradol, diclofenac As per hand surgeon Dr. Melvin: Dressing change once a day with dry sterile dressings. Keep wound clean and dry. Please follow-up with his PA Ruba Lew on May in the [place] office for postop follow-up and wound check and final wound intraoperative culture reports. You been prescribed 5 days of Augmentin twice daily with meals: Please follow-up with surgeon on May to see if you need a longer course of antibiotics after wound check Follow-up with your PCP for referral to endocrinology as outpatient for diabetes management Labs through PCP in 1 week: CBC, CMP, MG, VITAMIN B12 Total Time Total Time Spent Total Time Spent (In Minutes): 40 minutes Total Time Includes: Examination of the Patient, Discharge Planning, Medication Reconciliation and Communication With Other Providers Coding Level of Care Code 40737 INP/OBS DISCH >30 MIN Diagnoses Tenosynovitis of wrist flexor M65.939 Abscess of forearm, right L02.413 CAD (coronary artery disease) I25.10 Chronic diastolic CHF (congestive heart failure) I50.32 Hypertension I10 Type 2 diabetes mellitus E11.9 DANIEL on CPAP G47.33; Z99.89 Morbid obesity with BMI of 50.0-59.9, adult E66.01; Z68.43
[2024-05-10] MEDS ORDERED: AMOXICILLIN/CLAVULANATE 875 MG TAB PO SCH (17:00)
== END 2024-05-10 15:04 | disposition home or self-care (01) | DRG 982 ==
LOC: ED 17:39 → 3N 17:39 → SUATTDRO 20:00 → 3N 22:40 → SUATTDRO 05-07 18:27 → 3N 05-07 22:40